=== PATIENT | male | born 1980 | race Two or more races ===

== ENCOUNTER 2022-06-10 11:55 | Outpatient (REF) | payer OTHER, SELFPAY ==
--- NOTE | ~2022-06-10 | XR_ITS ---
EXAMINATION: XR CHEST CLINICAL INFORMATION: Obesity COMPARISON: None TECHNIQUE: 2 views of the chest were obtained. FINDINGS: No significant abnormality is noted involving the heart, lungs, mediastinum, bony thorax or soft tissues. XR/XR chest 2V IMPRESSION: Unremarkable chest examination.
[2022-06-10 12:08] LABS: MANUAL DIFF FLAG NO
--- NOTE | 2022-06-10 12:08 | ECG_ITS ---
Test Reason : e66.9 Blood Pressure : / mmHG Vent. Rate : 072 BPM Atrial Rate : 072 BPM P-R Int : 150 ms QRS Dur : 094 ms QT Int : 366 ms P-R-T Axes : 045 -10 029 degrees QTc Int : 400 ms Normal sinus rhythm with sinus arrhythmia Normal ECG No previous ECGs available Referred By: Fede Rehman Electronically Signed By:ISABEL GRACIA
[2022-06-10 12:36] LABS: Basophils Absolute Auto 0.1 X10*3/uL (0.0-0.2); Basophils Percent Auto 0.7 % (0-2); Eosinophils Absolute Auto 0.2 X10*3/uL (0.0-0.4); Eosinophils Percent Auto 2.1 % (0-4); Hematocrit 48.4 % (42.0-52.0); Hemoglobin 15.7 g/dl (14.0-18.0); Imm Gran Abs Auto 0.04 X10*3/uL (0.00-0.03); Imm Gran Pct Auto 0.5 % (0.0-0.4); Lymphocytes Absolute Auto 3.1 X10*3/uL (1.2-4.9); Lymphocytes Percent Auto 37.5 % (20-40); Mean Corpuscular HGB Conc 32.4 g/dl (31.0-36.0); Mean Corpuscular Hemoglobin 27.6 pg (27.0-33.0); Mean Corpuscular Volume 85.2 fL (80.0-98.0); Mean Platelet Volume 9.8 fL (9.4-12.4); Monocytes Absolute Auto 0.5 X10*3/uL (0.1-1.2); Monocytes Percent Auto 6.3 % (2-11); Neutrophils Absolute Auto 4.3 x10*3/uL (2.0-8.3); Neutrophils Percent Auto 52.9 % (45-73); Platelet Count 291 X10*3/uL (160-400); Red Blood Count 5.68 X10*6/uL (4.60-5.80); Red Cell Distribution Width 13.3 % (11.0-16.0); White Blood Count 8.2 X10*3/uL (4.8-10.8)
[2022-06-10 12:50] LABS: Alanine Aminotransferase 41 U/L (0-40); Albumin Level 4.6 g/dL (3.5-5.0); Alkaline Phosphatase 82 U/L (39-117); Anion Gap 15 (12-20); Aspartate Amino Transferase 20 U/L (5-37); Bilirubin Total 0.5 mg/dL (0.0-1.0); Blood Urea Nitrogen 11 mg/dL (9-16); C Reactive Protein 0.06 mg/dL (< or = 0.50); Carbon Dioxide 25 mmol/L (22-29); Chloride 105 mmol/L (96-108); Cholesterol 198 mg/dL; Estimated Glomerular Filt Rate > 60; Glucose Random 100 mg/dL (60-115); HDL Cholesterol 46 mg/dL; Iron 129 mcg/dL (45-160); LDL Cholesterol Calculated 98 mg/dl; Percent Iron Saturation 42 % (15-50); Potassium 4.9 mmol/L (3.3-5.1); Sodium 140 mmol/L (135-145); Total Iron Binding Capacity 310 mcg/dL (228-428); Total Protein 7.3 g/dL (6.5-8.0); Triglycerides 272 mg/dL; Unsaturated Iron Binding 181 ug/dL
[2022-06-10 12:53] LABS: Estimated Average Glucose 108 mg/dL; Hemoglobin A1c % 5.4 %
[2022-06-10 12:58] LABS: Calcium 10.8 mg/dL (8.4-10.2)
[2022-06-10 13:08] LABS: Ferritin 225 ng/mL (20-250); Insulin 21 uU/mL (2-29); TSH reflex Free T4 0.65 uIU/mL (0.32-4.0); Vitamin D 25-OH Total 22.4 ng/mL (>30)
[2022-06-10 13:53] LABS: Folate 8.1 ng/mL (> or = 4.0); Vitamin B12 434 pg/mL (200-900)
[2022-06-11 12:47] LABS: Calcium (PTHI) 10.5 mg/dL (8.6-10.3); PTHI 35 pg/mL (16-77)
[2022-06-13 01:27] LABS: Zinc 85 mcg/dL (60-130)
[2022-06-13 18:37] LABS: Vitamin A 66 mcg/dL (38-98)
[2022-06-15 12:42] LABS: Vitamin B1 16 nmol/L (8-30)
== END 2022-06-10 11:56 | disposition home or self-care (01) ==
LOC: HO.XRAY 11:55
PROVIDERS: Visit Provider Surgery
DX: E66.9 Obesity, unspecified (principal); I10 Essential (primary) hypertension; G47.30 Sleep apnea, unspecified
CPT/HCPCS: 36415; 71046; 80053; 80061; 82306; 82607; 82728; 82746; 83036; 83525; 83540; 83970; 84425; 84443; 84590; 84630; 85025; 86140; 93005

== ENCOUNTER 2022-07-02 08:23 | Outpatient (REF) | payer OTHER, SELFPAY ==
--- NOTE | ~2022-07-02 | US_ITS ---
EXAMINATION: US COMPLETE ABDOMEN WITH LIVER ELASTOGRAPHY CLINICAL INFORMATION: Obesity COMPARISON: None. TECHNIQUE: Real-time imaging of the abdominal viscera. Noninvasive ultrasound liver fibrosis assessment is performed using [employer] point quantification shear wave elastography (2D-SWE) with a C5-2 MHz transducer. Multiple elastography samples are obtained. FINDINGS: PANCREAS: Normal. ABDOMINAL AORTA: The proximal and distal aortic segments are normal in caliber. The mid abdominal aorta is not well visualized. INFERIOR VENA CAVA: Visualized portions are normal. LIVER: The liver demonstrates normal size, and contour. Liver echotexture is increased probably representing fatty infiltration. There are hypoechoic areas adjacent to the gallbladder, characteristic location of focal fatty sparing.. No focal lesion or intrahepatic biliary duct dilatation. The right lobe measures 17 cm in length. The left lobe measures 9 cm in length. Portal flow is normal/hepatopedal Shear wave liver elastography median stiffness is 1.7 m/s (reference: normal median stiffness is 1.3 m/s or less). IQR/median stiffness to assess sampling precision is 0.4 (reference: good quality data set is IQR/median stiffness of 0.15 or less). GALLBLADDER: Normal. The gallbladder is physiologically distended without evidence of stones, sludge, polyps, wall thickening or pericholecystic fluid. COMMON BILE DUCT: Normal in caliber measuring 0.3 cm in diameter. RIGHT KIDNEY: There are 2 cysts measuring 1.7 x 1.8 x 1.6 cm and 1.8 x 1.4 x 1.9 cm in the lower pole. No hydronephrosis. No renal calculi. The kidney measures 12 cm in maximum dimension. LEFT KIDNEY: Normal. No hydronephrosis. No renal calculi or focal parenchymal lesions. The kidney measures 11 cm in maximum dimension. SPLEEN: Normal. The spleen measures 10.6 cm in maximum dimension. FREE FLUID: None. US/US abdomen comp w elastography IMPRESSION: 1. Impression : Echogenic liver probably representing fatty infiltration. Right renal cysts. Visualization. 2. Liver elastography: Limited due to sampling error. REFERENCE: Society of Radiologists in Ultrasound Liver Stiffness Thresholds (2020): LIVER STIFFNESS THRESHOLDS: *Liver Stiffness equal or less than 1.3 m/s: High probability of being normal. *Liver Stiffness less than 1.7 m/s: In the absence of other known clinical signs, rules out compensated advanced chronic liver disease. *Liver Stiffness 1.7-2.1 m/s: Suggestive of compensated advanced chronic liver disease but need further test for confirmation. *Liver Stiffness over 2.1 m/s: Rules in compensated advanced chronic liver disease. *Liver Stiffness over 2.4 m/s: Suggestive of clinically significant portal hypertension. QUALITY OF DATA SET: *IQR/Median value equal or less than 0.15 implies a quality data set. *IQR/Median value over 0.15 implies a poor quality data set. SIGNIFICANT CHANGE FROM PRIOR EXAM: Significant change if liver stiffness measurement is 10% or greater from prior exam. OTHER CONSIDERATIONS: The stage of liver fibrosis may be overestimated in the setting of acute hepatitis, liver inflammation, elevated liver function tests, hepatic vascular congestion, obstructive cholestasis, non-fasting state, and infiltrative diseases such as amyloidosis and lymphoma. In some patients with NAFLD, the liver stiffness thresholds for compensated advanced chronic liver disease may be lower. In causes other than viral hepatitis and NAFLD, liver stiffness thresholds are not well established.
--- NOTE | ~2022-07-02 | FL_ITS ---
EXAMINATION: XR FLUOROSCOPY UPPER GI WITH AIR CLINICAL INFORMATION: Obesity. COMPARISON: None. TECHNIQUE: Routine upper GI air-contrast study was performed in upright and lying position. FINDINGS: Following oral administration of thick barium and effervescent granules, there is normal propagation of bolus from the oral cavity through the pharynx and esophagus and into the stomach without any evidence of obstruction, narrowing or stricture. On placing patient supine and prone lying, the course, caliber and peristalsis of the stomach, duodenal bulb and the sweep are normal. The mucosal pattern of the stomach or duodenum is normal. No gastroesophageal reflux or hiatal hernia seen. FLUOROSCOPY TIME: 2.0 minutes. DOSE AREA PRODUCT: 38.566 uGy-m2 (microgray-meter squared). FL/FL upper GI w air IMPRESSION: Unremarkable upper GI air-contrast study.
== END 2022-07-02 08:24 | disposition home or self-care (01) ==
LOC: HO.US 08:23
PROVIDERS: Visit Provider Surgery
DX: Z01.818 Encounter for other preprocedural examination (principal); E66.9 Obesity, unspecified; I10 Essential (primary) hypertension; G47.30 Sleep apnea, unspecified
CPT/HCPCS: 74246; 76705; 76981

== ENCOUNTER → 2022-07-08 08:56 | Outpatient (BNVA) | payer OTHER, SELFPAY | PROVIDERS: PCP Nurse Practitioner Family; Visit Provider Dietitian, Registered | DX: E66.9 Obesity, unspecified (principal) | CPT/HCPCS: 97802; 99211 ==

== ENCOUNTER 2022-07-08 15:38 | Outpatient (REF) | payer OTHER, SELFPAY ==
[2022-07-09 14:04] LABS: H Pylori Breath Test Negative (Negative)
== END 2022-07-08 15:39 | disposition home or self-care (01) ==
LOC: HO.LNP 15:38
PROVIDERS: Visit Provider Surgery
DX: E66.9 Obesity, unspecified (principal); G47.30 Sleep apnea, unspecified; I10 Essential (primary) hypertension; Z11.0 Encounter for screening for intestinal infectious diseases
CPT/HCPCS: 83013

== ENCOUNTER → 2022-07-29 09:39 | Outpatient (BNVA) | payer OTHER, SELFPAY | PROVIDERS: PCP Nurse Practitioner Family; Visit Provider Dietitian, Registered | DX: E66.9 Obesity, unspecified (principal); Z68.33 Body mass index [BMI] 33.0-33.9, adult | CPT/HCPCS: 97803 ==

== ENCOUNTER → 2022-07-30 09:00 | Outpatient (BNVA) | payer OTHER, SELFPAY | PROVIDERS: PCP Nurse Practitioner Family; Visit Provider Counselor Mental Health | DX: F31.32 Bipolar disorder, current episode depressed, moderate (principal); E66.9 Obesity, unspecified | CPT/HCPCS: 90791 ==

== ENCOUNTER → 2022-08-05 10:13 | Outpatient (BNVA) | payer OTHER, SELFPAY | PROVIDERS: PCP Nurse Practitioner Family; Visit Provider Counselor Mental Health | DX: F31.32 Bipolar disorder, current episode depressed, moderate (principal); F43.10 Post-traumatic stress disorder, unspecified; E66.9 Obesity, unspecified | CPT/HCPCS: 90834 ==

== ENCOUNTER → 2022-08-26 11:06 | Outpatient (BNVA) | payer OTHER, SELFPAY | PROVIDERS: Visit Provider Counselor Mental Health | DX: F31.32 Bipolar disorder, current episode depressed, moderate (principal); F43.10 Post-traumatic stress disorder, unspecified; E66.9 Obesity, unspecified | CPT/HCPCS: 90834 ==

== ENCOUNTER → 2022-09-18 08:04 | Outpatient (BNVA) | payer OTHER, SELFPAY | PROVIDERS: Visit Provider Surgery | DX: Z13.89 Encounter for screening for other disorder (principal) ==

== ENCOUNTER 2022-10-03 06:06 | Inpatient (IN) | payer OTHER, SELFPAY ==
[2022-09-24 08:31] LABS: MANUAL DIFF FLAG NO
[2022-09-24 08:53] LABS: Basophils Percent Auto 0.6 % (0-2); Eosinophils Absolute Auto 0.2 X10*3/uL (0.0-0.4); Eosinophils Percent Auto 2.9 % (0-4); Hemoglobin 15.5 g/dl (14.0-18.0); Imm Gran Abs Auto 0.02 X10*3/uL (0.00-0.03); Imm Gran Pct Auto 0.3 % (0.0-0.4); Lymphocytes Absolute Auto 2.8 X10*3/uL (1.2-4.9); Lymphocytes Percent Auto 42.7 % (20-40); Mean Corpuscular Hemoglobin 28.7 pg (27.0-33.0); Mean Platelet Volume 9.6 fL (9.4-12.4); Monocytes Absolute Auto 0.4 X10*3/uL (0.1-1.2); Monocytes Percent Auto 6.1 % (2-11); Neutrophils Absolute Auto 3.1 x10*3/uL (2.0-8.3); Neutrophils Percent Auto 47.4 % (45-73); Platelet Count 289 X10*3/uL (160-400); Red Cell Distribution Width 14.3 % (11.0-16.0); White Blood Count 6.5 X10*3/uL (4.8-10.8)
[2022-09-24 09:05] LABS: Estimated Average Glucose 100 mg/dL; Hemoglobin A1c % 5.1 %; Partial Thromboplastin Time 35.6 SEC (26.0-36.4)
[2022-09-24 09:36] LABS: Alanine Aminotransferase 22 U/L (0-40); Albumin Level 4.6 g/dL (3.5-5.0); Alkaline Phosphatase 74 U/L (39-117); Anion Gap 11 (12-20); Aspartate Amino Transferase 14 U/L (5-37); Bilirubin Total 1.1 mg/dL (0.0-1.0); Blood Urea Nitrogen 9 mg/dL (9-16); C Reactive Protein < 0.04 mg/dL (< or = 0.50); Carbon Dioxide 24 mmol/L (22-29); Chloride 109 mmol/L (96-108); Cholesterol 187 mg/dL; Estimated Glomerular Filt Rate > 60; Glucose Random 91 mg/dL (60-115); HDL Cholesterol 48 mg/dL; LDL Cholesterol Calculated 86 mg/dl; Potassium 4.2 mmol/L (3.3-5.1); Sodium 140 mmol/L (135-145); Total Protein 6.9 g/dL (6.5-8.0); Triglycerides 265 mg/dL
[2022-09-24 09:43] LABS: Insulin 6 uU/mL (2-29)
[2022-09-27 10:05] VITALS: BMI 30.2
--- NOTE | 2022-09-28 00:38 | MHC.SHP ---
Pre-Procedural Eval Section A Date of Service: 09/28/22 The patient is an INPATIENT: No The History & Physical has been completed within 30 days and I have reviewed it.: Yes Section B Chief Complaint: Obesity, unspecified Relevant Family History (Specify if Yes): No Relevant Social History: None Present Medications: None Medical History: No relevant PMH History of Previous Operations: No relevant previous surgery Allergies: Allergies Allergy/AdvReac Type Severity Reaction Status Date / Time No Known Drug Allergies Allergy Unknown Unknown Verified 09/18/22 09:04 Review of Systems Sugical H&P ROS: Negative: Constitution, Cardiovascular, Respiratory, Neurological, Psychiatric, Hem-Onc, Allergic/Immunologic, Gastrointestinal, Genitourinary, Musculoskeletal, Integumentary, Endocrine and Eyes/Ears/Nose/Throat Exam Surgical H&P Exam: Normal: HEENT, Normal: Heart, Normal: Lungs, Normal: Extremities, Normal: Abdomen, Normal: Skin and Normal: Neurological Plan Diagnosis/Plan: Unchanged I have reviewed the history and physical and performed a pertinent physical examination on my patient. No changes have occurred unless specified. Time Spent With Patient Time: Total time managing care of this patient today ____ minutes.
--- NOTE | 2022-10-02 10:14 | HO.ANESPROP2 ---
Documented by User: Radha Woodson NP 10/02/22 10:19 HPI - Anesthesia Eval Consult details Narrative: 42yo M for Gastrectomy Sleeve,possible diaphragmatic hernia,possible ventral hernia,possible open PMFSH Active Problems Active Problems: All Active Problems (Updated 09/27/22 @ 10:07 by Kary Camilo RN) Hypertension (Acute) Vitamin D deficiency (Acute) Vitamin B12 deficiency (Acute) BMI 34.0-34.9,adult (Acute) Bipolar 1 disorder, depressed, moderate (Acute) Complex posttraumatic stress disorder (Acute) BMI 31.0-31.9,adult (Acute) BMI 30.0-30.9,adult (Acute) Depression (Acute) Back pain (Acute) Prediabetes (Acute) Hypertension (Acute) HIV positive (Acute) GERD (gastroesophageal reflux disease) (Acute) Hyperlipidemia (Acute) Sleep apnea (Acute) BMI 37.0-37.9, adult (Acute) Obesity (Acute) Past Medical History Medical History Back pain Bipolar disorder BMI 37.0-37.9, adult Depression GERD (gastroesophageal reflux disease) HIV positive Hyperlipidemia Hypertension Murmur, heart Obesity Prediabetes Sleep apnea Surgical History Surgical History H/O nasal septoplasty H/O rectal polypectomy History of laparoscopic appendectomy (~2020) Hx of tonsillectomy Social History Social History Are you a primary home care music therapist to a significant other at home: No Do you presently have visiting nurse or other home services: No Alcohol intake: never Patient Tobacco Use Status: Never used Tobacco Use of substances other than those prescribed or required for medical reasons: No Have you been hit, kicked, punched, or otherwise hurt by someone within the past year? If so, by whom?: No Are you DNR?: No Advance Directives: No ( is primary contact-does not have official HCP form) Advance Directives Information Provided: Yes (brochure mailed) Advance Directives on File: No Recently lost weight without trying: No Eating poorly because of decreased appetite: No Nutrition Risks: No Nutritional Risk Poor oral hygiene: No (one crown-upper left molar) Meds Allergies Allergy/AdvReac Type Severity Reaction Status Date / Time No Known Drug Allergies Allergy Unknown Unknown Verified 09/18/22 09:04 Home Medications Medication Instructions Recorded Confirmed Last Taken Type atorvastatin 20 mg tablet 20 mg PO DAILY 06/03/22 10/03/22 Unknown History emtricitabine 200 mg-rilpivirine 1 tab PO DAILY 06/03/22 10/03/22 Unknown History 25 mg-tenofovir alafenam 25 mg tablet (Odefsey) quetiapine 25 mg tablet (Seroquel) 25 mg PO DAILY 06/03/22 10/03/22 Unknown History cholecalciferol (vitamin D3) 125 125 mcg PO DAILY 09/27/22 10/03/22 Unknown History mcg (5,000 unit) capsule hydrochlorothiazide 12.5 mg tablet 12.5 mg PO DAILY 09/27/22 10/03/22 Unknown History mecobalamin (vitamin B12) 1,000 1,000 mcg sublingual DAILY 09/27/22 10/03/22 Unknown History mcg disintegrating tablet,sublingual Exam Exam Date and Time: October 02, 2022 1014 Height,Weight and Vital Signs: Height 5 ft 9 in Weight 92.986 kg Pertinent Lab Results Pertinent Lab Results: Laboratory Tests 09/24/22 09/24/22 09/24/22 08:22 08:29 08:29 WBC 6.5 RBC 5.40 Hgb 15.5 Hct 47.0 MCV 87.0 MCH 28.7 MCHC 33.0 RDW 14.3 Plt Count 289 MPV 9.6 Immature Gran % (Auto) 0.3 Neut % (Auto) 47.4 Lymph % (Auto) 42.7 H Wake % (Auto) 6.1 Eos % (Auto) 2.9 Baso % (Auto) 0.6 Lymph # (Auto) 2.8 Wake # (Auto) 0.4 Eos # (Auto) 0.2 Baso # (Auto) 0.0 Abs Immat Gran (auto) 0.02 Absolute Neuts (auto) 3.1 Absolute Nucleated RBC 0.000 Nucleated RBC % (auto) 0.0 PT 11.0 INR 1.0 APTT 35.6 Sodium Potassium Chloride Carbon Dioxide Anion Gap BUN Creatinine Estim Creat Clear Calc Estimated GFR Random Glucose Estimat Average Glucose Hemoglobin A1c % Insulin Level Calcium Total Bilirubin AST ALT Alkaline Phosphatase C-Reactive Protein Total Protein Albumin Triglycerides Cholesterol LDL Cholesterol, Calc HDL Cholesterol TSH Blood Type O Positive Antibody Screen NEGATIVE 09/24/22 09/24/22 08:29 08:29 WBC RBC Hgb Hct MCV MCH MCHC RDW Plt Count MPV Immature Gran % (Auto) Neut % (Auto) Lymph % (Auto) Wake % (Auto) Eos % (Auto) Baso % (Auto) Lymph # (Auto) Wake # (Auto) Eos # (Auto) Baso # (Auto) Abs Immat Gran (auto) Absolute Neuts (auto) Absolute Nucleated RBC Nucleated RBC % (auto) PT INR APTT Sodium 140 Potassium 4.2 Chloride 109 H Carbon Dioxide 24 Anion Gap 11 L BUN 9 Creatinine 0.93 Estim Creat Clear Calc TNP Estimated GFR > 60 Random Glucose 91 Estimat Average Glucose 100 Hemoglobin A1c % 5.1 Insulin Level 6 Calcium 10.0 D Total Bilirubin 1.1 H AST 14 ALT 22 Alkaline Phosphatase 74 C-Reactive Protein < 0.04 Total Protein 6.9 Albumin 4.6 Triglycerides 265 Cholesterol 187 LDL Cholesterol, Calc 86 HDL Cholesterol 48 TSH 1.00 Blood Type Antibody Screen Narrative Narrative: EKG 05/2022 Vent. Rate : 072 BPM ? ? Atrial Rate : 072 BPM ?? P-R Int : 150 ms? QRS Dur : 094 ms ? ? QT Int : 366 ms ? ? ? P-R-T Axes : 045 -10 029 degrees ?? QTc Int : 400 ms ? Normal sinus rhythm with sinus arrhythmia Normal ECG No previous ECGs available ? Assessment and Plan Assessment Anesthesia Assessment: Chart Reviewed Documented by User: Maral Krishnamurthy MD 10/03/22 08:14 [facility] [place] Past Medical History Medical History Back pain Bipolar disorder BMI 37.0-37.9, adult Depression GERD (gastroesophageal reflux disease) HIV positive Hyperlipidemia Hypertension Murmur, heart Obesity Prediabetes Sleep apnea Surgical History Surgical History H/O nasal septoplasty H/O rectal polypectomy History of laparoscopic appendectomy (~2020) Hx of tonsillectomy History of Problems with Anesthesia: No Social History Social History Are you a primary home care music therapist to a significant other at home: No Do you presently have visiting nurse or other home services: No Alcohol intake: never Patient Tobacco Use Status: Never used Tobacco Use of substances other than those prescribed or required for medical reasons: No Have you been hit, kicked, punched, or otherwise hurt by someone within the past year? If so, by whom?: No Are you DNR?: No Advance Directives: No ( is primary contact-does not have official HCP form) Advance Directives Information Provided: Yes (brochure mailed) Advance Directives on File: No Recently lost weight without trying: No Eating poorly because of decreased appetite: No Nutrition Risks: No Nutritional Risk Poor oral hygiene: No (one crown-upper left molar) Meds Allergies Allergy/AdvReac Type Severity Reaction Status Date / Time No Known Drug Allergies Allergy Unknown Unknown Verified 09/18/22 09:04 Home Medications Medication Instructions Recorded Confirmed Last Taken Type atorvastatin 20 mg tablet 20 mg PO DAILY 06/03/22 10/03/22 Unknown History emtricitabine 200 mg-rilpivirine 1 tab PO DAILY 06/03/22 10/03/22 Unknown History 25 mg-tenofovir alafenam 25 mg tablet (Odefsey) quetiapine 25 mg tablet (Seroquel) 25 mg PO DAILY 06/03/22 10/03/22 Unknown History cholecalciferol (vitamin D3) 125 125 mcg PO DAILY 09/27/22 10/03/22 Unknown History mcg (5,000 unit) capsule hydrochlorothiazide 12.5 mg tablet 12.5 mg PO DAILY 09/27/22 10/03/22 Unknown History mecobalamin (vitamin B12) 1,000 1,000 mcg sublingual DAILY 09/27/22 10/03/22 Unknown History mcg disintegrating tablet,sublingual Exam Airway Mallampati Class: II (Full bernardo) TM Dist: >3cm Neck ROM: Full Loose/Missing/Broken Teeth: No Heart: RRR Lungs: CTA Assessment and Plan Assessment Anesthesia Assessment: Anesthesia Plan Discussed Final Anesthetic Review History of Problems with Anesthesia: No NPO: Yes ASA Class: II Final Preanesthetic Review: Meds/Allgs Chart Reviewed, Consent Obtained/Reviewed and Anes Risks/Benef Reviewed Patient Risk: Low Procedure Risk: Intermediate Anesthetic Plan Anesthetic Plan: GA Disposition: Standard PACU
[2022-10-02 13:08] LABS: COVID-19 Test Negative (Negative); IDNOW Serial# 55D5AD1C
[2022-10-03] VITALS (11 sets, daily range): BP systolic 107–142; BP diastolic 60–91; PULSE 60–100; RESP 14–18; TEMP 36.1–37.2; O2SAT 94–100
[2022-10-03] MEDS: Lactated Ringers 1,000 ML 100 ML IVCONT (06:31)
[2022-10-03] MEDS: Lactated Ringers 1,000 ML 999 ML IV (06:31)
--- NOTE | 2022-10-03 06:58 | HE.PHANOTE ---
Addendum entered by Ani Yan [facility] 10/03/22 07:00: Odefsey was verified, label generated. 2 tablets in bottle when given to pharmacy Original Note: RN from [facility] dropped off pt own meds, Odefsey is going to be used PT OWN per Dr. Olmos, Seroquel was also in bag and is going to be kept in pharmacy C2 safe. RN left without triplicate form.
--- NOTE | 2022-10-03 07:31 | PHA.MEDREC ---
Pharmacy Consult ? Medication Reconciliation Pharmacy has completed the medication reconciliation. Reviewed med rec done by nursing
--- NOTE | 2022-10-03 07:51 | PM.OP ---
Brief Operative Note Date of Service: 10/03/22 Pre-op diagnosis: Obesity with comorbidities (see below) Post-op diagnosis: same (& diaphragmatic hernia) Procedure: INITIAL PATIENT BMI ON PRESENTATION AT OUR OFFICE: 37.3 kg/m2 LAST BMI BEFORE SURGERY: 29.9 kg/m2 COMORBIDITIES: sleep apnea on CPAP, HIV positive, depression, anxiety, prediabetes, liver fibrosis, liver steatosis, GERD, back pain ?The patient presented to the Weight Management Program with significant obesity that was negatively impacting the patient's comorbidities as listed above.? The program is a phased program with a special focus on preoperative medical weight management to promote substantial weight loss and prepare the patients for the second phase of the program: bariatric surgery. The patient participated in an intensive weekly lifestyle ?intervention and exercise program during which the patient ?has lost between the initial office visit and the last preoperative visit 50.4lbs, or 20% of initial actual body weight. It was deemed appropriate for the patient to now have bariatric surgery. In light of the current Covid-19 pandemic and the well documented strong association of obesity and increased risk of worse outcomes if infected with Covid-19 (REFERENCES:https://pubmed.ncbi.nlm.nih.gov/02533667/,?https://pubmed.ncbi.nlm.nih.gov/00822005/), any delay in undergoing bariatric surgery may lead to the patient's worsening health condition and increased?risk of more severe Covid-19 disease if infected. In addition a recent?study from [facility] published in [facility] on 09/17/2021 ([email or web address]) found that, among patients with obesity, substantial weight loss achieved with surgery was associated with improved outcomes of COVID-19 infection. The findings suggest that obesity can be a modifiable risk factor for the severity of COVID-19 infection. In addition, the patient met the BMI-criteria for bariatric surgery based on the BMI on initial presentation. The patient should not be penalized for achieving such weight loss because ?it is not sustainable long-term without surgical intervention and it was achieved in preparation for bariatric surgery ?under my direction and based on my published research ([email or web address] and?[email or web address].soard.org/article/[email or web address]-X/pdf) ?that a 10% preoperative weight loss improves long-term weight loss after surgery and reduces perioperative complications.? Insurance carriers such as [facility] have endorsed my recommendations ?and have included in their policies criteria to include a 10% preoperative weight loss requirement. PROCEDURE: Esophago-gastroscopy, laparoscopic repair of incarcerated diaphragmatic hernia, laparoscopic lysis of adhesions, laparoscopic sleeve gastrectomy and laparoscopic gastropexy INDICATIONS: This is a 42 year-old male who was electively scheduled for laparoscopic, possibly open sleeve gastrectomy. The risks and complications of the procedure were discussed with the patient in advance, particularly the possibility of ; pulmonary embolism; staple line leak; bleeding; GERD; cardiac, pulmonary, or renal complications; as well as long-term problems such as insufficient weight loss, vitamin deficiency, strictures, or ulcers. The patient understood all the risks, and was in agreement to proceed with surgery. DESCRIPTION OF PROCEDURE: After informed consent was obtained from the patient, the patient was given preoperative antibiotics, and was transferred to the operating room. After successful induction of general anesthesia, pneumatic compression devices were placed on both lower extremities. An upper endoscopy was performed next. The oropharynx and esophagus appeared to be within normal limits. There was a diaphragmatic hernia present of moderate size that was not reported at the preoperative upper GI. The stomach was entered. Then after all fluid and air were suctioned and the stomach was fully decompressed, the scope was withdrawn and secured in the mid esophagus. The patient was then prepped and draped in the usual sterile manner, and abdominal access was established at the right upper quadrant with the Maulik technique. A 12 mm blunt port was inserted, and the abdomen was insufflated with CO2 to a pressure of 15 mmHg. Under direct visualization, additional ports were placed, specifically two 5 mm Versi-step ports to the left upper quadrant, and a 5 mm Versi-Step port to the right upper quadrant. 1% lidocaine plain was used to infiltrate all port sites as well as all fascia defects. Following that, the patient was placed in a steep reverse Trendelenburg position. An additional 5 mm port was placed to the right flank for the Mediflex retractor that was used to retract the left lobe of the liver. The gastro-esophageal fat pad was opened with the ultrasonic device (Thunderbeat, Olympus) and the anterior esophagus and hiatus were exposed. The angle of His was opened with the ultrasonic device the fundus of the stomach from any diaphragmatic and splenic attachments. I then opened the gastrocolic ligament between the transverse colon and the greater curvature of the stomach with the ultrasonic device to enter the lesser sac and facilitate the ligation of the short gastric vessels. I started at a mid-point along the greater curvature and using the Thunderbeat, all short gastric vessels were divided all the way to the angle of His until the left ilia was completely dissected at its entirety. I then divided the gastro-colic ligament distally to a distance of about 3-4 cm proximal to the pylorus. There were extensive congenital adhesions between the pancreas and posterior gastric wall. Those were lysed completely with the ultrasonic device. Adhesiolysis took approximately 45 min to complete. There was an obvious significant-sized hiatal hernia. I continued dissecting along the hiatus toward the left ilia and the angle of His. I fully mobilized the fat pad that was incarcerated in the hernia. I then continued by dissecting even further into the posterior retro-esophageal space all the way to the angle of His. I continued to mobilize the esophagus into the mediastinum circumferentially. Both vagal nerves were seen and preserved. At that point, I was able to have at least 3 to 5 cm of esophagus into the abdomen.? After I completely mobilized the esophagus from both the left and right ilia and I had a good mobilization of the esophagus circumferentially, I closed the hernia defect with four interrupted #0 Surgidac sutures using the Endo Stitch device,three of which was placed posterior and one of which anterior to the esophagus. ? The stomach was then divided transversely with one Endo ROLAND-45 purple, 3 ROLAND-45 orange loads and 3 ROLAND-60 articulating orange loads using the AEON stapler and loads. Every effort was made that the gastric sleeve had a tubular shape and an even caliber throughout. Once the sleeve resection was completed, the staple line of the gastric sleeve was reinforced with Hemoclips. The resected stomach was retrieved without difficulty from the Maulik port. A gastropexy was then performed in order to prevent postoperative GERD and partial gastric volvulus. Several interrupted 2.0 Surgidac sutures were placed between the sleeve's staple line and the previously divided greater omentum and gastro-colic ligament using the Endo-Stitch device. ?An upper endoscopy was performed. There was no narrowing at the GE junction. The scope was easily advanced all the way to the pylorus which was clearly visualized. There was no narrowing anywhere and the sleeve's caliber was even throughout. The sleeve's staple line was inspected and there was no evidence of ischemia, bleeding or dehiscence. At that point the gastroscope was withdrawn from the patient?s mouth while we were decompressing the bowel and the stomach from any remaining air. I looked into the lesser sac to see how the sleeve was situating and it was situating well. There was no bleeding from the staple line, spleen, or short gastric vessels. The Mediflex retractor was removed, and the undersurface of the liver was inspected and there was no bleeding. The patient was placed in supine position. I closed the fascial defect of the 12 mm port site with a figure of eight #1 Polysorb suture. Then 30cc of Ropivacaine plain with 10 mg of Dexamethasone were used to infiltrate the fascial closure as well as all skin incisions. A total of 7ml Zynrelef was applied in the Maulik wound. At this point, the abdomen was deflated, all ports were removed under direct vision, and no bleeding was noted from any of the port sites. The skin incisions were irrigated with saline and were closed with 4-0 absorbable monofilament sutures. Steri-Strips and OpSites were used to cover all incisions. The patient was extubated and was transferred in stable condition to the recovery room for further care. I was present and performed all sullivan parts of the procedure. Ms. Gee was the assistant store manager operations. There were no residents to assist with this case. Pablo Rehman MD, PhD, FACS Surgeon: Fede Rehman MD Anesthesia: GETA, local and other (TAP block & 7ml Zynrelef) Was an Severity Of Illness Coordinator used for this Procedure?: No Severity Of Illness Coordinator: Vivek Olmos Estimated blood loss (mL): 50 IV fluids (mL): 3,000 Urine output (mL): 0 (No Nesbitt to record output) Pathology: other (Stomach) Condition: stable Disposition: PACU
--- NOTE | 2022-10-03 07:55 | PM.PNGS ---
Subjective Subjective Date of Service: 10/04/22 Interval history: Patient has mild incisional pain, but was able to ambulate and use the incentive spirometer. He is tolerating phase 1 bariatric diet Physical Exam Vital Signs: Vital Signs: Last Vital Signs Temp 97.9 F 10/03/22 06:51 Pulse 69 10/03/22 06:51 Resp 18 10/03/22 06:51 BP 129/72 10/03/22 06:51 Pulse Ox 97 10/03/22 06:51 O2 Del Method 10/03/22 06:51 BMI result Body Mass Index 30.2 GI: Inspection: Yes normal to inspection, Yes incision (clean, dry and intact) and Yes obesity Palpation (GI): Soft to palpation Extrem: Right lower extremity: normal to inspection (no calf tenderness) Left lower extremity: normal to inspection (no calf tenderness) Objective Data Active Medications Lactated Ringer's (Lr) 1,000 mls @ 100 mls/hr IVCONT .Q10H BEAR Last Admin: 10/03/22 06:31 Dose: 100 mls/hr Documented By: FITO Lactated Ringer's (Lr) 1,000 mls @ 999 mls/hr IV .Q1H1M BEAR Stop: 10/03/22 08:15 Last Admin: 10/03/22 06:31 Dose: 999 mls/hr Documented By: FITO Pt Own (Paulette( [id number]) Tablet 1 Tab) 1 tab PO DAILY BEAR Labs 09/24/22 08:29 09/24/22 08:29 Labs: Laboratory Results - last 24 hr 10/02/22 12:36 COVID-19 (JIM) Negative COVID-19 Clin Com See Note Procedures Date of Service Date of Service: 10/04/22 Progress Note: A&P Assessment and plan (1) Obesity: Status: Acute Assessment and Plan: s/p laparoscopic sleeve gastrectomy, lysis of adhesions, repair of diaphragmatic hernia, and gastropexy Doing well Check am labs. If OK, will discharge home? (2) BMI 30.0-30.9,adult: Status: Acute (3) Hypertension: Status: Acute (4) Prediabetes: Status: Acute (5) GERD (gastroesophageal reflux disease): Status: Acute (6) HIV positive: Status: Acute (7) Hyperlipidemia: Status: Acute (8) Sleep apnea: Status: Acute (9) Back pain: Status: Acute (10) Depression: Status: Acute (11) Steatosis, liver: Status: Acute (12) Liver fibrosis: Status: Acute (13) S/P laparoscopic sleeve gastrectomy: Status: Acute (14) Status post repair of paraesophageal diaphragmatic hernia: Status: Acute (15) Congenital intra-abdominal adhesions: Status: Acute Time Spent With Patient Time: Total time managing care of this patient today ____ minutes. Quality Stroke Does the patient have a stroke diagnosis?: No VTE Prior VTE?: No VTE Risk Level:: Surgical - moderate VTE Device Contraindication: N/A - Device Ordered VTE Drug Contraindication: Treatment Not Indicated
--- NOTE | 2022-10-03 11:22 | P.DS_ITS ---
DS: Providers Provider Date of Service: 10/04/22 Date of admission: 10/03/22 06:06 Primary care physician: Rosamaria Grullon NP DS: Diagnosis Discharge Diagnosis (1) Obesity: Status: Acute (2) BMI 30.0-30.9,adult: Status: Acute (3) Hypertension: Status: Acute (4) Prediabetes: Status: Acute (5) GERD (gastroesophageal reflux disease): Status: Acute (6) HIV positive: Status: Acute (7) Hyperlipidemia: Status: Acute (8) Sleep apnea: Status: Acute (9) Back pain: Status: Acute (10) Depression: Status: Acute (11) Steatosis, liver: Status: Acute (12) Liver fibrosis: Status: Acute DS: Summary Hospital Course Hospital Course: ADMITTING DIAGNOSIS: obesity, HTN, HIV, MARI, Depression, Bipolar ? DISCHARGE DIAGNOSIS: same, s/p laparoscopic sleeve gastrectomy and repair diaphragmatic hernia ? PAST SURGICAL HISTORY: laparoscopic appendectomy, septoplasty, tonsillectomy ? PROCEDURE: upper endoscopy, laparoscopic sleeve gastrectomy and repair of diaphragmatic hernia hernia ? DISCHARGE SUMMARY: ? History of Present Illness: ? The patient is a?42 year-old male with a BMI of?37.2 kg/m2 and associated co- morbidities as described above. The patient had extensive work-up,lost?47.3 lbs preoperatively and was electively scheduled for laparoscopic, possible open sleeve gastrectomy and gastropexy. Risks and complications of the surgery were discussed with the patient in advance, particularly the possibility of , pulmonary embolism, anastomotic leak, bleeding, bowel injury, GERD, cardiac, renal or pulmonary complications. The patient understood all the risks and was in agreement with the surgical plan. ? Hospital Course: ? The patient underwent an uneventful laparoscopic sleeve gastrectomy with gastropexy and repair of diaphragmatic hernia on the day of admission. Postoperatively, the patient was transferred to the surgical floor. The patient received IV Acetaminophen and IV dilaudid for pain control. Patient was started on bariatric phase 1 diet POD #0. On postoperative day one, the patient was feeling well without nausea, vomiting, fevers, or tachycardia. The patient had some mild incisional pain and the abdomen was soft. ? On the morning of postoperative day one, the patient was continued on 1 ounce of water or ice every half hour. During the day, the patient did fairly well, having some incisional pain, but able to ambulate adequately and to tolerate liquids well. ? Since the patient is doing well, we decided that the patient was ready to be discharged. The patient was given instructions to follow-up with me next week and to call my office for any fever over 101, persistent abdominal pain, nausea, vomiting, GERD, symptoms of DVT such as calf tenderness, or leg swelling, or pulmonary embolism such as chest pain or shortness of breath. The patient was also instructed to drink 40-60 ounces of liquids per day using the 1-ounce cups. The patient had been given prescriptions for Tylenol for pain, Zofran prn for nausea, and pantoprazole and carafate previously. The patient was encouraged to ambulate and use the incentive spirometer. The patient was allowed to shower, but no baths, and encouraged to stay active at home. All of these instructions were given to the patient personally. All questions were answered and the patient understood all instructions, the instructions were also given to the patient in print. Time Spent with Patient Time attestation: Total time managing care of this patient today ____ minutes. Discharge coordination time: Less than 30 minutes Quality: Safe Use of Opioids Does Pt have an Active Cancer Diagnosis on the Problem List?: No Quality: Stroke Does the patient have a stroke diagnosis?: No Physical Exam Vital Signs: Vital Signs: Last Vital Signs Temp 97.9 F 10/03/22 06:51 Pulse 69 10/03/22 06:51 Resp 18 10/03/22 06:51 BP 129/72 10/03/22 06:51 Pulse Ox 97 10/03/22 06:51 O2 Del Method 10/03/22 06:51 BMI result Body Mass Index 30.2 DS: Data Data Completed and Pending Pending studies at discharge: Pending at discharge 10/03/22 10:24 Surgical [PTH] Routine Labs on day of discharge: Laboratory Results - last 24 hr 10/02/22 12:36 COVID-19 (JIM) Negative COVID-19 Clin Com See Note Discharge Plan Discharge Anticipated Discharge Date/Time: 10/04/22 10:00 Patient Disposition: Home, Self-Care Discharge Diagnosis: s/p laparoscopic sleeve gastrectomy and repair of diaphragmatic hernia Referrals: Rosamaria Grullon NP [Primary Care Provider] - 1 Week Discharge Medications: Continued fondaparinux 2.5 mg/0.5 mL syringe 2.5 mg subcut Q24H Qty: 5 1RF atorvastatin 20 mg tablet 20 mg PO DAILY quetiapine [Seroquel] 25 mg tablet 25 mg PO DAILY pantoprazole 40 mg tablet,delayed release (DR/EC) 40 mg PO DAILY Qty: 30 2RF sucralfate 100 mg/mL suspension 10 ml PO BID Qty: 400 2RF ondansetron HCl 4 mg tablet 4 mg PO Q12H Qty: 20 0RF Rx Instructions: Every 12 hours for nausea as needed Held hydrochlorothiazide 12.5 mg tablet 12.5 mg PO DAILY Hold Instructions: until discussed with Dr Ori Caldwell 200-25-25 mg tablet 1 tab PO DAILY Hold Instructions: Resume on 10/14/22. Rx Instructions: must administer with a meal/food Discontinued cholecalciferol (vitamin D3) 125 mcg (5,000 unit) capsule 125 mcg PO DAILY mecobalamin (vitamin B12) 1,000 mcg tablet,disintegrating 1,000 mcg sublingual DAILY Rx Instructions: place tablet under tongue and allow to dissolve for at least30 secs before swallowing polyethylene glycol 3350 [Miralax] 17 gram powder in packet 17 g PO DAILY Qty: 14 0RF Rx Instructions: Mix each packet with 8oz of water and do 7 packets on 10/01/22 and another 7 packets on 10/02/22 Discharge Orders: Discharge Order (Routine); Ordered 10/04/22 Ordered By: Fede Rehman Activity on Discharge: No heavy lifting Stand Alone Forms: Patient Portal Discharge page Care Plan Goals: weight loss Health Concerns: obesity Plan of Treatment: No tub baths, sex or returning to work until discussed at first post op appointment. No exercise, alcohol, tobacco or illegal drug use. Continue to use incentive spirometer hourly while awake. Walk in home for 5- 10 minutes every 2 hours during the first week. Follow all instructions in the bariatric handbook and call with any questions.Discharge Instructions 1. Please call your doctor or come back to the emergency room should any new symptoms arise. 2. You will receive a courtesy call from [facility] 24-48 hours after discharge. 3. Activity: abstain from alcohol, practice limited stair climbing, no bending, no driving, no exercise, no illicit substances, no lifting, no sex, no tub bath, no work. 4. Diet: continue as discussed with Dr. Rehman. 5. Dressing Change/Wound Care: Your incision is covered by clear bandages and guaze underneath. If the area is tender, you may apply an ice pack for short intervals (no more than 20 minutes on, followed by at least 20 minutes off). Do not apply heat. Do not use creams, lotions, or topical antibiotics unless instructed to do so by your surgeon. These can cause infection or allergic reaction. 6. Call your doctor if: - Your temperature exceeds 101.5 F - You experience excessive pain or swelling - You have an unexpected reaction to medication - You have excessive bleeding - You experience continued vomiting/nausea - Your incision begins to separate - Your incision shows signs of infection such as increased redness, swelling, excessive pain, heat, or drainage (light blood or clear fluid is normal) 7. General instructions: No lifting greater than 5 lbs for the next 4 weeks[address] driving within 24 hours of taking narcotic pain medications. If you do not move your bowels in the next 2 days, please take milk of magnesia over the counter. Please follow the post op diet and do not advance your diet until you are seen in the office in about 2 weeks. Please walk around your home every hour or two to prevent blood clots from forming in your legs. You do not need to wake from sleeping to walk. Please sleep in a bed or couch to prevent kinking at the hips and knees. Please take your incentive spirometer (your lung radioactive waste disposal dispatcher) home with you and use it for the next few days to prevent pneumonias. You may shower, no hot tubs, baths or swimming pools. Please call the office with any questions or concerns such as increasing abdominal pain, fever, chills, shortness of breath, chest pain, leg pain or swelling, or redness or drainage from your incisions. Please stay on stage 3 diet which includes sugar free clear liquids such as ice pops and jello and broth and crystal light. Avoid all carbonation. Please drink 3 protein shakes with at least 25-30 grams of protein daily or 3 of the Celebrate 4:1 shakes which can be purchased in our office. The Celebrate shakes have all of the bariatric vitamins you need if you consume these shakes. If you are drinking other protein shakes, you will need to purchase the Celebrate mu ltivitamins and calcium that we provide in the office (they will provide all the vitamins you need). Please make sure you are consuming at least 40-60 ounces of water in addition to your 3 protein shakes daily. Do not hesitate to contact the office with any questions at . The patient's medical history has been reviewed and they are considered low risk for post op DVT and therefore DVT prophylaxis is not considered necessary. Travel after surgery was reviewed. The patient has not disclosed any travel plans during the first 30 days after surgery and they have been advised that within the first 30 days after surgery any bus, plane, train or car travel over 2 hours in duration is contraindicated due to the possibility of developing blood clots from immobility. Any travel, needs to include periods of ambulation of 10 minutes in duration every 2 hours.? The patient was instructed to discuss any plans for travel during this period with their bariatric surgeon. Assessment: stable s/p laparoscopic sleeve gastrectomy and repair of diaphragmatic hernia
[2022-10-03 11:43] LABS: Hematocrit 41.2 % (42.0-52.0); Hemoglobin 13.6 g/dl (14.0-18.0)
[2022-10-03] MEDS: Famotidine/PF 20 MG/2 ML VIAL IVPUSH ×2 (11:55→21:12)
[2022-10-03 12:04] LABS: Anion Gap 14 (12-20); Blood Urea Nitrogen 12 mg/dL (9-16); Calcium 8.6 mg/dL (8.4-10.2); Carbon Dioxide 26 mmol/L (22-29); Chloride 100 mmol/L (96-108); Creatinine Clr Calc Pharmacy 109.4; Estimated Glomerular Filt Rate > 60; Glucose Random 73 mg/dL (60-115); Potassium 4.3 mmol/L (3.3-5.1); Sodium 136 mmol/L (135-145)
[2022-10-03] MEDS: Lactated Ringers 1,000 ML 125 ML IVCONT ×2 (12:27→19:42)
[2022-10-03] MEDS: ceFAZolin Sodium/Dextrose,Iso 2 GM/50 ML PIGGYBACK IV (13:19)
--- NOTE | 2022-10-03 13:48 | HE.PHANOTE ---
Sent offshore wind turbine technician down with PT own james to put in pt own bin.
[2022-10-03] MEDS: Acetaminophen 1,000 MG/100 ML PIGGYBACK 16.7 MG IV ×2 (14:09→19:42)
[2022-10-03] MEDS: QUEtiapine Fumarate 25 MG TABLET PO (21:12)
[2022-10-03] MEDS: ondansetron HCL 4 MG/2 ML VIAL IVPUSH (21:12)
[2022-10-04] MEDS: Acetaminophen 1,000 MG/100 ML PIGGYBACK 16.7 MG IV ×2 (00:21→06:12)
[2022-10-04] MEDS: Lactated Ringers 1,000 ML 125 ML IVCONT (03:05)
[2022-10-04 04:00] VITALS: BP 107/63; PULSE 60; RESP 16; TEMP 36.4; O2SAT 98
[2022-10-04] MEDS: ondansetron HCL 4 MG/2 ML VIAL IVPUSH (04:16)
[2022-10-04 06:19] LABS: MANUAL DIFF FLAG NO
[2022-10-04 06:34] LABS: Basophils Percent Auto 0.1 % (0-2); Hematocrit 38.9 % (42.0-52.0); Hemoglobin 12.7 g/dl (14.0-18.0); Imm Gran Abs Auto 0.03 X10*3/uL (0.00-0.03); Imm Gran Pct Auto 0.4 % (0.0-0.4); Lymphocytes Absolute Auto 1.9 X10*3/uL (1.2-4.9); Lymphocytes Percent Auto 22.8 % (20-40); Mean Corpuscular HGB Conc 32.6 g/dl (31.0-36.0); Mean Corpuscular Hemoglobin 28.1 pg (27.0-33.0); Mean Corpuscular Volume 86.1 fL (80.0-98.0); Mean Platelet Volume 10.1 fL (9.4-12.4); Monocytes Absolute Auto 0.8 X10*3/uL (0.1-1.2); Monocytes Percent Auto 10.1 % (2-11); Neutrophils Absolute Auto 5.5 x10*3/uL (2.0-8.3); Neutrophils Percent Auto 66.6 % (45-73); Platelet Count 232 X10*3/uL (160-400); Red Blood Count 4.52 X10*6/uL (4.60-5.80); Red Cell Distribution Width 13.5 % (11.0-16.0); White Blood Count 8.3 X10*3/uL (4.8-10.8)
[2022-10-04 06:51] LABS: Anion Gap 17 (12-20); Blood Urea Nitrogen 8 mg/dL (9-16); Carbon Dioxide 23 mmol/L (22-29); Chloride 102 mmol/L (96-108); Creatinine Clr Calc Pharmacy 112.9; Estimated Glomerular Filt Rate > 60; Glucose Random 76 mg/dL (60-115); Potassium 4.8 mmol/L (3.3-5.1); Sodium 137 mmol/L (135-145)
[2022-10-04 07:34] VITALS: BP 115/76; PULSE 76; RESP 18; TEMP 36.1; O2SAT 100
[2022-10-04 08:15] VITALS: O2SAT 99
--- NOTE | 2022-10-04 08:18 | HO.POSTANES ---
Post Anesthesia Evaluation Post Anesthesia Evaluation Vital Signs: Vital Signs Temp Pulse Resp BP Pulse Ox O2 Del Method 10/04/22 07:34 97.0 F 76 18 115/76 100 Room Air 10/04/22 04:00 97.6 F 60 16 107/63 98 Room Air Anesthesia: General Endotracheal-GETA Mental Status: Awake Pain Control: Satisfactory Nausea/Vomiting: None Hydration: Adequate Anesthesia-Related Issues: No Anes. Related Issues
[2022-10-04] MEDS: 0.9 % Sodium Chloride Flush 3 ML SYRINGE IVFLUSH (08:52)
[2022-10-04] MEDS: Famotidine/PF 20 MG/2 ML VIAL IVPUSH (08:52)
== END 2022-10-04 12:00 | disposition home or self-care (01) | DRG 403 ==
LOC: HO.SSSA 11:25 → HO.S3 11:27
PROVIDERS: Physician Assistant Surgical; Admitting Provider Surgery; PCP Nurse Practitioner Family; Visit Provider Surgery
PROC: 0DB64Z3 Excision of Stomach, Percutaneous Endoscopic Approach, Vertical (ICD-10-PCS; CPT 43845; principal; 2022-10-03 07:30)
DX: E66.01 Morbid (severe) obesity due to excess calories (principal); K44.0 Diaphragmatic hernia with obstruction, without gangrene; E78.5 Hyperlipidemia, unspecified; Z21 Asymptomatic human immunodeficiency virus [HIV] infection status; R73.03 Prediabetes; I10 Essential (primary) hypertension; Q43.3 Congenital malformations of intestinal fixation; F31.9 Bipolar disorder, unspecified; F41.9 Anxiety disorder, unspecified; Z68.30 Body mass index [BMI] 30.0-30.9, adult; Z20.822 Contact with and (suspected) exposure to COVID-19; Z79.899 Other long term (current) drug therapy
CPT/HCPCS: 36415; 80048; 80053; 80061; 83036; 83525; 84443; 85014; 85018; 85025; 85610; 85730; 86140; 86850; 86900; 86901; 87635; 88307; 88342; A4649; C9088; J0131; J0690; J1100; J1170; J2250; J2370; J2405; J2795; J3010

== ENCOUNTER → 2022-10-07 09:26 | Outpatient (BNVA) | payer OTHER, SELFPAY | PROVIDERS: Visit Provider Counselor Mental Health | DX: F43.10 Post-traumatic stress disorder, unspecified (principal); F31.32 Bipolar disorder, current episode depressed, moderate; Z98.84 Bariatric surgery status | CPT/HCPCS: 90834 ==

== ENCOUNTER → 2022-10-08 13:02 | Outpatient (BNVA) | payer OTHER, SELFPAY | PROVIDERS: PCP Nurse Practitioner Family; Visit Provider Physician Assistant Surgical | DX: Z13.89 Encounter for screening for other disorder (principal) ==

== ENCOUNTER → 2022-10-21 11:10 | Outpatient (BNVA) | payer OTHER, SELFPAY | PROVIDERS: PCP Nurse Practitioner Family; Visit Provider Physician Assistant Surgical | DX: Z13.89 Encounter for screening for other disorder (principal) ==

== ENCOUNTER 2022-10-21 12:03 | Outpatient (REF) | payer OTHER, SELFPAY ==
--- NOTE | ~2022-10-21 | US_ITS ---
EXAMINATION: US VENOUS ULTRASOUND WITH DOPPLER LOWER EXTREMITY, BILATERAL CLINICAL INFORMATION: Left lower extremity pain. COMPARISON: None TECHNIQUE: Ultrasound of the deep veins is performed from the hip to the calf with compression sonography and color and pulse Doppler assessment. Spectral analysis with color-flow imaging is performed. FINDINGS: RIGHT: There is normal venous compression and respiratory variation and augmented flow. The visualized common femoral vein, superficial femoral vein, profunda femoral vein, popliteal vein, and the trifurcation region shows no evidence of deep venous thrombosis. No right popliteal cyst. The subcutaneous soft tissues are unremarkable. LEFT: There is normal venous compression and respiratory variation and augmented flow. The visualized common femoral vein, superficial femoral vein, profunda femoral vein, popliteal vein, and the trifurcation region shows no evidence of deep venous thrombosis. No left popliteal cyst. The subcutaneous soft tissues are unremarkable. If the patient's symptoms persist, followup ultrasound in 5 days 7 days might be of value to exclude proximal propagation from a non-visualized calf vein. US/US venous duplex LE BI IMPRESSION: No evidence for deep venous thrombosis in the visualized veins of the bilateral lower extremities.
== END 2022-10-21 12:04 | disposition home or self-care (01) ==
LOC: HO.US 12:03
PROVIDERS: Visit Provider Surgery
DX: M79.606 Pain in leg, unspecified (principal); E66.3 Overweight
CPT/HCPCS: 90834; 93970

== ENCOUNTER → 2022-11-18 10:17 | Outpatient (BNVA) | payer OTHER, SELFPAY | PROVIDERS: PCP Nurse Practitioner Family; Visit Provider Counselor Mental Health | DX: F43.10 Post-traumatic stress disorder, unspecified (principal); F31.32 Bipolar disorder, current episode depressed, moderate; Z98.84 Bariatric surgery status | CPT/HCPCS: 90834 ==

== ENCOUNTER → 2022-12-09 08:21 | Outpatient (BNVA) | payer OTHER, SELFPAY | PROVIDERS: PCP Nurse Practitioner Family; Visit Provider Counselor Mental Health ==

== ENCOUNTER → 2023-01-13 09:56 | Outpatient (BNVA) | payer OTHER, SELFPAY | PROVIDERS: PCP Nurse Practitioner Family; Visit Provider Counselor Mental Health ==

== ENCOUNTER → 2023-02-10 09:54 | Outpatient (BNVA) | payer OTHER, SELFPAY | PROVIDERS: PCP Nurse Practitioner Family; Visit Provider Physician Assistant Surgical | DX: Z98.84 Bariatric surgery status (principal) | CPT/HCPCS: 99212 ==

== ENCOUNTER → 2023-02-12 17:00 | Outpatient (BNVA) | payer OTHER, SELFPAY | PROVIDERS: PCP Nurse Practitioner Family; Visit Provider Counselor Mental Health | DX: F31.32 Bipolar disorder, current episode depressed, moderate (principal); F43.10 Post-traumatic stress disorder, unspecified; Z98.84 Bariatric surgery status | CPT/HCPCS: 90853 ==

== ENCOUNTER → 2023-02-19 17:11 | Outpatient (BNVA) | payer OTHER, SELFPAY | PROVIDERS: PCP Nurse Practitioner Family; Visit Provider Counselor Mental Health | DX: F43.10 Post-traumatic stress disorder, unspecified (principal); F31.32 Bipolar disorder, current episode depressed, moderate; Z98.84 Bariatric surgery status | CPT/HCPCS: 90853 ==

== ENCOUNTER → 2023-02-24 10:34 | Outpatient (BNVA) | payer OTHER, SELFPAY | PROVIDERS: PCP Nurse Practitioner Family; Visit Provider Counselor Mental Health ==

== ENCOUNTER → 2023-03-10 13:55 | Outpatient (BNVA) | payer OTHER, SELFPAY | PROVIDERS: PCP Nurse Practitioner Family; Visit Provider Dietitian, Registered | DX: E66.9 Obesity, unspecified (principal); Z98.84 Bariatric surgery status; Z68.22 Body mass index [BMI] 22.0-22.9, adult | CPT/HCPCS: 97803 ==

== ENCOUNTER → 2023-03-26 14:11 | Outpatient (BNVA) | payer OTHER, SELFPAY | PROVIDERS: PCP Nurse Practitioner Family; Visit Provider Counselor Mental Health ==

== ENCOUNTER 2023-03-31 09:15 | Outpatient (AMB) | payer OTHER, SELFPAY ==
[2023-03-31 09:17] VITALS: BP 122/75; PULSE 62; TEMP 35.9; O2SAT 100; BMI 23.3
--- NOTE | 2023-03-31 09:17 | MHC.OFFVISWM ---
Intake VS Expanded 03/31/23 09:17 Height 5 ft 9 in Weight 158 lb BMI 23.3 BP 122/75 Blood Pressure Location Lt brachial Blood Pressure Position Sitting Pulse 62 Pulse Source Pulse Oximeter Temp 96.6 F L Temperature Source Temporal Artery Scan Pulse Oximetry 100 Oxygen Delivery Method Room Air Body Fat 25.4 Body Fat Percentage 16.1 Free Fat Mass 132.4 Muscle Mass 125.8 Visceral Mass 6.0 Water Mass 94.0 BMR 1,723 Intake Visit Reasons: (OV) PO LSG 10/03/22 Allergies No Known Drug Allergies Allergy (Unknown, Verified 03/31/23 10:07) Unknown HPI HPI Comments History of Present Illness Details This?a?42?yo male who is s/p LSG without hiatal hernia repair on?10/03/22. Presents for 6 month post op visit. Weight today is 158 pounds, with a BMI of 23.3.? There has been a 94.4 pound weight loss,(initial weight 252.4 pounds) since starting the program on 06/10/22 reflecting a 37.4% total body weight loss and a weight loss of 46.5 pounds since surgery (operative weight 204.5 pounds) reflecting a 22.7% TBWL since surgery.? No complaints of nausea, emesis, abdominal pain or reflux. Reports infrequent but normal bowel movements every 1-2 days and uses stool softeners regularly. He has been doing great and has no significant complaints. Taking Fusion MVI and Genaro+ D He reports that he feels great and that he has good energy and is being mindful of his eating.? Present meal plan includes: Isopure 2 scoops in almond milk ZP bar or Premier Protein RTD at lunch meal : Salad with protein (chicken/turkey/seafood), 10 forks protein/salad, 5pm drinking 96 oz water daily ? Exercise routine includes: Outdoor bike 1 hour daily?? Any post op complications: none MARI: resolved DM: never HTN: resolved Hyperlipidemia: resolved GERD:?0-5 scale ??0 = no symptoms ??1 = symptoms noticeable but not bothersome 2 =symptoms bothersome but not daily ? 3 = symptoms bothersome and daily 4 = symptoms affect daily activities 5 = symptoms are incapacitating, unable to do daily activities ? How bad is the heartburn: 0 ? Heartburn while lying down: 0 ? Heartburn when standing up: 0 ? Heartburn after meals: 0 ? Does heartburn change your diet: 0 ? Does heartburn wake you up from sleep: 0 ? Do you have difficulty swallowin ? Do you have pain with swallowin ? If you take medicine for your reflux, does this affect your daily life: 0 Satisfaction with present condition - satisfied or not satisfied: satisfied [facility] Medical History Back pain Bipolar disorder BMI 31.0-31.9,adult BMI 34.0-34.9,adult BMI 37.0-37.9, adult Depression GERD (gastroesophageal reflux disease) HIV positive Hyperlipidemia Hypertension Murmur, heart Obesity Prediabetes Sleep apnea Surgical History H/O nasal septoplasty H/O rectal polypectomy History of laparoscopic appendectomy (~2020) Hx of tonsillectomy Social History Are you a primary clinical care leader to a significant other at home: No Do you presently have visiting nurse or other home services: No Alcohol intake: never Patient Tobacco Use Status: Never used Tobacco Physical Exam Vital Signs: BMI result Body Mass Index 23.3 Const General: cooperative and no acute distress Orientation/consciousness: patient oriented x3 Resp Effort & Inspection: normal respiratory effort Auscultation: clear to auscultation bilaterally Cardio Rate: regular rate Rhythm: regular rhythm GI Inspection: Yes normal to inspection and Yes incision (well healed) Palpation (GI): Soft to palpation and no masses Neuro General: patient oriented x3 Assessment & Plan Assessment & Plan (1) S/P laparoscopic sleeve gastrectomy: Code(s): Z98.84 - Bariatric surgery status Plan: check 6 month post op labs continue meal plan rtc 3 months Orders: Orders Vitamin B12 and Folate Today E78.5 - Hyperlipidemia, unspecified, I10 - Essential (primary) hypertension, K76.0 - Fatty (change of) liver, not elsewhere classified, Z98.84 - Bariatric surgery status Basic Metabolic Panel Today E78.5 - Hyperlipidemia, unspecified, I10 - Essential (primary) hypertension, K76.0 - Fatty (change of) liver, not elsewhere classified, Z98.84 - Bariatric surgery status C Reactive Protein Today E78.5 - Hyperlipidemia, unspecified, I10 - Essential (primary) hypertension, K76.0 - Fatty (change of) liver, not elsewhere classified, Z.84 - Bariatric surgery status Ferritin Today E78.5 - Hyperlipidemia, unspecified, I10 - Essential (primary) hypertension, K76.0 - Fatty (change of) liver, not elsewhere classified, Z.84 - Bariatric surgery status Insulin Today E78.5 - Hyperlipidemia, unspecified, I10 - Essential (primary) hypertension, K76.0 - Fatty (change of) liver, not elsewhere classified, Z.84 - Bariatric surgery status IRON PROFILE Today E78.5 - Hyperlipidemia, unspecified, I10 - Essential (primary) hypertension, K76.0 - Fatty (change of) liver, not elsewhere classified, Z.84 - Bariatric surgery status Lipid Panel Today E78.5 - Hyperlipidemia, unspecified, I10 - Essential (primary) hypertension, K76.0 - Fatty (change of) liver, not elsewhere classified, Z.84 - Bariatric surgery status PTHI Today E78.5 - Hyperlipidemia, unspecified, I10 - Essential (primary) hypertension, K76.0 - Fatty (change of) liver, not elsewhere classified, Z.84 - Bariatric surgery status TSH reflex Free T4 Today E78.5 - Hyperlipidemia, unspecified, I10 - Essential (primary) hypertension, K76.0 - Fatty (change of) liver, not elsewhere classified, Z.84 - Bariatric surgery status Vitamin A Today E78.5 - Hyperlipidemia, unspecified, I10 - Essential (primary) hypertension, K76.0 - Fatty (change of) liver, not elsewhere classified, Z.84 - Bariatric surgery status Vitamin B1 Today E78.5 - Hyperlipidemia, unspecified, I10 - Essential (primary) hypertension, K76.0 - Fatty (change of) liver, not elsewhere classified, Z.84 - Bariatric surgery status Vitamin D 25-OH Total Today E78.5 - Hyperlipidemia, unspecified, I10 - Essential (primary) hypertension, K76.0 - Fatty (change of) liver, not elsewhere classified, Z.84 - Bariatric surgery status Zinc Today E78.5 - Hyperlipidemia, unspecified, I10 - Essential (primary) hypertension, K76.0 - Fatty (change of) liver, not elsewhere classified, Z98.84 - Bariatric surgery status Complete Blood Count Auto Diff Today E78.5 - Hyperlipidemia, unspecified, I10 - Essential (primary) hypertension, K76.0 - Fatty (change of) liver, not elsewhere classified, Z98.84 - Bariatric surgery status Coding Level of Care Code Est Pt Level 3 (89912) Diagnoses S/P laparoscopic sleeve gastrectomy Z98.84
== END 2023-03-31 10:13 | disposition home or self-care (01) ==
PROVIDERS: PCP Nurse Practitioner Family; Visit Provider Physician Assistant Surgical
DX: E78.5 Hyperlipidemia, unspecified (principal); I10 Essential (primary) hypertension; Z98.84 Bariatric surgery status; Z90.3 Acquired absence of stomach [part of]
CPT/HCPCS: 99213

== ENCOUNTER → 2023-03-31 09:15 | Outpatient (BNVA) | payer OTHER, SELFPAY | PROVIDERS: PCP Nurse Practitioner Family; Visit Provider Physician Assistant Surgical | DX: K76.0 Fatty (change of) liver, not elsewhere classified (principal); I10 Essential (primary) hypertension; E78.5 Hyperlipidemia, unspecified; Z98.84 Bariatric surgery status | CPT/HCPCS: 99212 ==

== ENCOUNTER 2023-04-14 10:20 | Outpatient (AMB) | payer OTHER, SELFPAY ==
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
== END 2023-04-14 11:52 | disposition home or self-care (01) ==
PROVIDERS: PCP Nurse Practitioner Family; Visit Provider Counselor Mental Health
DX: F43.10 Post-traumatic stress disorder, unspecified (principal); F31.32 Bipolar disorder, current episode depressed, moderate; Z98.84 Bariatric surgery status
CPT/HCPCS: 90834

== ENCOUNTER → 2023-04-14 10:20 | Outpatient (BNVA) | payer OTHER, SELFPAY | PROVIDERS: PCP Nurse Practitioner Family; Visit Provider Counselor Mental Health | DX: F43.10 Post-traumatic stress disorder, unspecified (principal); F31.32 Bipolar disorder, current episode depressed, moderate; Z98.84 Bariatric surgery status ==

== ENCOUNTER 2023-04-28 10:28 | Outpatient (AMB) | payer OTHER, SELFPAY ==
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
== END 2023-04-28 14:01 | disposition home or self-care (01) ==
PROVIDERS: PCP Nurse Practitioner Family; Visit Provider Counselor Mental Health
DX: F43.10 Post-traumatic stress disorder, unspecified (principal); F31.32 Bipolar disorder, current episode depressed, moderate; Z98.84 Bariatric surgery status
CPT/HCPCS: 90834

== ENCOUNTER → 2023-04-28 10:28 | Outpatient (BNVA) | payer OTHER, SELFPAY | PROVIDERS: PCP Nurse Practitioner Family; Visit Provider Counselor Mental Health | DX: F43.10 Post-traumatic stress disorder, unspecified (principal); F31.32 Bipolar disorder, current episode depressed, moderate; Z98.84 Bariatric surgery status ==

== ENCOUNTER → 2023-06-09 09:01 | Outpatient (BNVA) | payer OTHER, SELFPAY | PROVIDERS: PCP Nurse Practitioner Family; Visit Provider Counselor Mental Health ==

== ENCOUNTER 2023-08-25 11:04 | Outpatient (AMB) | payer OTHER, SELFPAY ==
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
== END 2023-09-11 14:11 | disposition home or self-care (01) ==
PROVIDERS: PCP Nurse Practitioner Family; Visit Provider Counselor Mental Health
DX: F43.10 Post-traumatic stress disorder, unspecified (principal); F31.32 Bipolar disorder, current episode depressed, moderate; Z98.84 Bariatric surgery status
CPT/HCPCS: 90834

== ENCOUNTER → 2023-08-25 11:04 | Outpatient (BNVA) | payer OTHER, SELFPAY | PROVIDERS: PCP Nurse Practitioner Family; Visit Provider Counselor Mental Health ==

== ENCOUNTER 2025-01-31 12:27 | Outpatient (AMB) | payer OTHER, SELFPAY ==
--- OUTSIDE RECORDS SUMMARY | 2025-01-31 12:54 | XMS_ITS | Data Portability ---
Author Organization [facility], Allergy Address [address] [facility] [address] [place] [address] Care Team Providers Care Equity Research Associate Name Role Phone DONNELL BAKER Primary Care Provider [phone] Assessment Encounter Date Assessment Date Assessment LastModified by Organization Details LastModified Time 09/08/2024 09/08/2024 Bilateral tinnitus and light headedness. Hx of migraine and HIV disease history of noise exposure working on the [employer] in [place] and as a [employer] Audiogram from April was normal. Examination is normal without nystagmus or imbalance. Suggest idiopathic tinnitus and migraine as the diagnosis. I think things are complicated by his bipolar as well. I have suggested magnesium oxide up to 400 mg and riboflavin up to 400 mg daily for migraine prevention. He will check with his infectious disease specialist to make sure there are no contraindications . I have also given him a list of migraine triggers to avoid. [email or web address] Not available 09/08/2024 13:27:36 Plan of Treatment Reminders Order Date Submit Date Provider Last Modified By Organization Details Last Modified Time Details Appointments None record ed. Lab None record ed. Referral None record ed. Procedures None record ed. Surgeries None record ed. Imaging None record ed. Medication Orders None record ed. Patient TargetsNo targets recorded. Patient InstructionsNo instructions recorded. Reason for Referral None Reported. Problems Name Problem SNOMED Code Status Onset Date Resolution Date Notes Provider Name and Address Organization Details Recorded Time Bilateral tinnitus 0325612135925 Active 2023 TORRIE BROWN MD [address] [facility], [place], [address] [place] - [facility] 13:27:44 Lightheaded ness 881732495 Active 2023 TORRIE BROWN MD [address], [address], [facility] 4 13:27:48 Human immunodefic iency virus infection 40998072 Active 2023 TORRIE BROWN MD [address] [address], [place], [address], [facility] 4 13:27:58 Migraine 58965726 Active 2023 TORRIE BROWN MD [address] [address], [place], [address], [facility] 13:28:07 Problem Notes None recorded. Medical Equipment None Reported. Allergies No known drug allergies Medications Name Sig Start Date Stop Date Status Note LastModified by Organization Details LastModified Time doxycycline hyclate 100 mg capsule TAKE 2 CAPSULES WITHIN 48 HOURS OF UNPROTECT ED SEX. NO MORE THAN 2 CAPSULES IN 24HOURS 09/08 completed Not Available Not Available Not Available atorvastati n 20 mg tablet TAKE 1 TABLET BY MOUTH DAILY active Not Available Not Available No t Available quetiapine 100 mg tablet TAKE 1 TABLET BY MOUTH DAILY AT BEDTIME,X 90 DAYS,INST R:PER ONE TIME PSYCHAITR Y FOR PTSD active Not Available Not Available No t Available Odefsey 200 mg-25 mg-25 mg tablet TAKE 1 TABLET BY MOUTH EVERY DAY WITH FOOD active Not Available Not Available No t Available Vitals None Recorded Social History None recorded. Functional Status None recorded. Mental Status None recorded. Family History Nothing Reported. Medical History Condition Response Anxiety Y Depression Y Kidney Disease Y Past Encounters Encounter ID Performer Location Encounter Start Date Encounter Closed Date Diagnosis/Indication Diagnosis SNOMED-CT Code Diagnosis ICD10 Code Diagnosis Note [id number] TORRIE GTZ MD [facility] [address] [place] [address] 09/08/2024 12:30:20 09/08/2024 13:31:09 Bilateral tinnitus 2151907549 102 H93.13 Today we discussed the pathophysi ology of tinnitus and the absence of consistent ly successful pharmacolo gic treatments for tinnitus. We discussed masking strategies to decrease awareness of the tinnitus, including using a white noise machine, music, Replise tinnitus darell or television . We discussed how exposure to loud noise can worsen tinnitus so I recommende d hearing protection . We also discussed other ways to potentiall y help reduce awareness of tinnitus including avoidance of caffeine, salty meals and NSAIDs. Lightheadedness 44778022 8 R42 Human immunodeficiency virus infection [id number] B20 Migraine 12846862 G43.90 9 Suspect underlying migraine headache. Suggest reduction of cheese, chocolate, citrus fruit, cold cuts, nuts, MSG and alcohol. Suggest trial of magnesium oxide 2 to 400 mg daily and riboflavin 400 mg daily. Associatio n of migraine disorders website given, vance [email or web address] for additional informatio n. He will contact me in a few weeks with an update. Health Concerns Section Related Observation LastModified by Organization Detai ls LastModified Time None Recorded Concern Status LastModified by Organization Details LastModified Time None Recorded Advance Directives Directive None Recorded Payers Insurance Date Sequence Insurance Name Policy Number Policy Killian Covered Member ID Killian Member ID Guarantor Name 09/08/2024 1 [facility] (MEDICAID HMO) Isra Barr [id number] Isra Barr 09/08/2024 1 [facility] (MEDICAID HMO) [id number] Isra Irby [id number] Isra Barr Notes Date Note Type Note Provider Name and Address Organization Details Recorded Time 09/08/2024 text/html Bilateral tinnit us and light headedness. 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 - [facility] 09/08/2024 13:30:15
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
[2025-01-31 13:32] VITALS: BP 111/64; PULSE 64; TEMP 36.3; O2SAT 100; BMI 25.8
== END 2025-01-31 14:00 | disposition home or self-care (01) ==
LOC: HO.HBS 12:27
PROVIDERS: PCP Nurse Practitioner Family; Visit Provider Physician Assistant Surgical
DX: Z71.3 Dietary counseling and surveillance (principal); Z98.84 Bariatric surgery status
CPT/HCPCS: 99213; G2211

== ENCOUNTER → 2025-01-31 12:27 | Outpatient (BNVA) | payer OTHER, SELFPAY | PROVIDERS: PCP Nurse Practitioner Family; Visit Provider Physician Assistant Surgical | DX: E53.8 Deficiency of other specified B group vitamins (principal); E55.9 Vitamin D deficiency, unspecified; K76.0 Fatty (change of) liver, not elsewhere classified; Z98.84 Bariatric surgery status | CPT/HCPCS: 99212 ==

== ENCOUNTER 2025-02-07 10:56 | Outpatient (REF) | payer OTHER, SELFPAY ==
--- OUTSIDE RECORDS SUMMARY | 2025-02-07 11:38 | XMS_ITS | Data Portability ---
Author Organization [facility], Allergy Address [address] [facility] [place] [address] [place] [address] Care Team Providers Care Turner In Name Role Phone DONNELL BAKER Primary Care Provider Assessment Encounter Date Assessment Date Assessment LastModified by Organization Details LastModified Time 09/08/2024 09/08/2024 Bilateral tinnitus and light headedness. Hx of migraine and HIV disease history of noise exposure working on the [employer] in [place] and as a [employer] Audiogram from April was normal. Examination is [...] Address Organization Details Recorded Time Bilateral tinnitus [id number] Active 2023 TORRIE BROWN MD 100 [facility], [place], [address] [place] - [facility] 13:27:44 Lightheaded ness [id number] Active 2023 TORRIE BROWN MD [address], [address], [facility] 4 13:27:48 Human immunodefic iency virus infection 72319792 Active 2023 TORRIE BROWN MD [address] [address], [place], [address], [facility] 4 13:27:58 Migraine 67458850 Active 2023 TORRIE BROWN MD [address] [address], [place], [address], [facility] 13:28:07 Problem Notes None recorded. Medical [...] SNOMED-CT Code Diagnosis ICD10 Code Diagnosis Note [id number] TORRIE GTZ MD [facility] 100 [place] [address] 09/08/2024 12:30:20 09/08/2024 13:31:09 Bilateral tinnitus [id number] 102 H93.13 Today we discussed the pathophysi ology of tinnitus and the absence of consistent ly successful pharmacolo gic treatments for tinnitus. We discussed masking strategies to decrease awareness of the tinnitus, including using a white noise machine, music, [employer] tinnitus darell or television . We discussed how exposure to loud noise can worsen tinnitus so I recommende d hearing protection . We also discussed other ways to potentiall y help reduce awareness of tinnitus including avoidance of caffeine, salty meals and NSAIDs. Lightheadedness [id number] 8 R42 Human immunodeficiency virus infection 72898620 B20 Migraine [id number] G43.90 9 Suspect underlying migraine headache. Suggest [...] Killian Member ID Guarantor Name 09/08/2024 1 [facility] (MEDICAID HMO) Isra Barr [id number] Isra Barr 09/08/2024 1 [facility] (MEDICAID HMO) [id number] Isra Irby [id number] Isra Barr Notes Date Note Type Note Provider Name and Address Organization Details Recorded Time 09/08/2024 text/html Bilateral tinnit us and light headedness. 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
[2025-02-07 11:47] LABS: Basophils Percent Auto 0.9 % (0-2); Eosinophils Absolute Auto 0.1 X10*3/uL (0.0-0.4); Eosinophils Percent Auto 1.5 % (0-4); Hematocrit 45.7 % (42.0-52.0); Hemoglobin 15.2 g/dl (14.0-18.0); Lymphocytes Absolute Auto 2.8 X10*3/uL (1.2-4.9); Lymphocytes Percent Auto 61.5 % (20-40); MANUAL DIFF FLAG SCAN; Mean Corpuscular HGB Conc 33.3 g/dl (31.0-36.0); Mean Corpuscular Hemoglobin 28.5 pg (27.0-33.0); Mean Corpuscular Volume 85.7 fL (80.0-98.0); Mean Platelet Volume 9.8 fL (9.4-12.4); Monocytes Absolute Auto 0.4 X10*3/uL (0.1-1.2); Neutrophils Absolute Auto 1.2 x10*3/uL (2.0-8.3); Neutrophils Percent Auto 27.1 % (45-73); Platelet Count 243 X10*3/uL (160-400); Red Blood Count 5.33 X10*6/uL (4.60-5.80); Red Cell Distribution Width 13.2 % (11.0-16.0); SCAN SMEAR FLAG 1; White Blood Count 4.6 X10*3/uL (4.8-10.8)
[2025-02-07 12:08] LABS: Estimated Average Glucose 100 mg/dL; Hemoglobin A1C 128.9106 umol/L; Hemoglobin A1c % 5.1 % (<6.0); Total Hemoglobin (HGBA1C) 3943.4824 umol/L
[2025-02-07 12:24] LABS: SLIDE REVIEW VERIFIED
[2025-02-07 12:33] LABS: Alanine Aminotransferase 49 U/L (0-40); Albumin Level 4.7 g/dL (3.5-5.0); Alkaline Phosphatase 63 U/L (39-117); Anion Gap 12 (12-20); Aspartate Amino Transferase 21 U/L (5-37); Bilirubin Total 0.9 mg/dL (0.0-1.0); Blood Urea Nitrogen 14 mg/dL (9-16); C Reactive Protein 0.22 mg/dL (< or = 0.50); Calcium 9.6 mg/dL (8.4-10.2); Carbon Dioxide 30 mmol/L (22-29); Chloride 105 mmol/L (96-108); Cholesterol 172 mg/dL (<200); Estimated Glomerular Filt Rate > 60; Glucose Random 89 mg/dL (60-115); HDL Cholesterol 60 mg/dL (>40); Iron 190 mcg/dL (45-160); LDL Cholesterol Calculated 96 mg/dL (<100); Percent Iron Saturation 68 % (15-50); Potassium 3.7 mmol/L (3.3-5.1); Sodium 143 mmol/L (135-145); Total Iron Binding Capacity 281 mcg/dL (228-428); Total Protein 7.2 g/dL (6.5-8.0); Triglycerides 81 mg/dL (<150); Unsaturated Iron Binding 91 ug/dL
[2025-02-07 12:38] LABS: Ferritin 431 ng/mL (20-250); TSH reflex Free T4 0.55 uIU/mL (0.32-4.0); Vitamin D 25-OH Total 20.4 ng/mL (>30)
[2025-02-07 12:49] LABS: Vitamin B12 466 pg/mL (200-900)
[2025-02-07 12:54] LABS: Insulin 7 uU/mL (2-29)
[2025-02-10 00:59] LABS: Zinc 88 mcg/dL (60-130)
[2025-02-10 22:04] LABS: Vitamin A 65 mcg/dL (38-98)
[2025-02-13 14:04] LABS: Vitamin B1 9 nmol/L (8-30)
== END 2025-02-07 10:57 | disposition home or self-care (01) ==
LOC: HO.LAB 10:56
PROVIDERS: PCP Physician Assistant; Visit Provider Physician Assistant Surgical
DX: Z98.84 Bariatric surgery status (principal); K76.0 Fatty (change of) liver, not elsewhere classified; E55.9 Vitamin D deficiency, unspecified; E53.8 Deficiency of other specified B group vitamins
CPT/HCPCS: 36415; 80053; 80061; 82306; 82607; 82728; 82746; 83036; 83525; 83540; 84425; 84443; 84590; 84630; 85025; 86140

== ENCOUNTER 2025-02-15 08:10 | Outpatient (AMB) | payer OTHER, SELFPAY ==
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
--- OUTSIDE RECORDS SUMMARY | 2025-02-15 08:13 | XMS_ITS | Data Portability ---
Author Organization [facility], Allergy Address 100 [facility] 100 [place] [address] Care Team Providers Care Game Design Instructor Name Role Phone DONNELL BAKER Primary Care Provider Assessment Encounter Date Assessment Date Assessment LastModified by Organization Details LastModified Time 09/08/2024 09/08/2024 Bilateral tinnitus and light headedness. Hx of migraine and HIV disease history of noise exposure working on the [employer] in [place] and as a [employer] Audiogram from April was normal. Examination is [...] Address Organization Details Recorded Time Bilateral tinnitus [id number] Active 2023 TORRIE BROWN MD 100 [facility], [address], [place], [address] [place] - [facility] 13:27:44 Lightheaded ness 657012816 Active 2023 TORRIE BROWN MD [address], [address], [facility] 4 13:27:48 Human immunodefic iency virus infection 95132155 Active 2023 TORRIE BROWN MD [address] [address], [place], [address], [facility] 4 13:27:58 Migraine 62268583 Active 2023 TORRIE BROWN MD [address] [address], [place], [address], [facility] 13:28:07 Problem Notes None recorded. Medical [...] History Nothing Reported. Medical History Condition Response Depression Y Kidney Disease Y Anxiety Y Past Encounters Encounter ID Performer Location Encounter Start Date Encounter Closed Date Diagnosis/Indication Diagnosis SNOMED-CT Code Diagnosis ICD10 Code Diagnosis Note [id number] TORRIE GTZ MD [facility] 100 [place] [address] 09/08/2024 12:30:20 09/08/2024 13:31:09 Bilateral tinnitus 8614581277 102 H93.13 Today we discussed the pathophysi ology of tinnitus and the absence of consistent ly successful pharmacolo gic treatments for tinnitus. We discussed masking strategies to decrease awareness of the tinnitus, including using a white noise machine, music, [employer] tinnitus darell or television . We discussed how exposure to loud noise can worsen tinnitus so I recommende d hearing protection . We also discussed other ways to potentiall y help reduce awareness of tinnitus including avoidance of caffeine, salty meals and NSAIDs. Lightheadedness 15658539 8 R42 Human immunodeficiency virus infection 50740182 B20 Migraine 67201141 G43.90 9 Suspect underlying migraine headache. Suggest [...] Killian Member ID Guarantor Name 09/08/2024 1 [facility] (MEDICAID HMO) Isra Barr [id number] Isra Barr 09/08/2024 1 [facility] (MEDICAID HMO) [id number] Isra Irby [id number] Isra Barr Notes Date Note Type Note Provider Name and Address Organization Details Recorded Time 09/08/2024 text/html Bilateral tinnit us and light headedness. 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
== END 2025-02-15 09:28 | disposition home or self-care (01) ==
LOC: HO.HBST 08:10
PROVIDERS: PCP Physician Assistant; Visit Provider Counselor Mental Health
DX: F43.10 Post-traumatic stress disorder, unspecified (principal); Z98.84 Bariatric surgery status
CPT/HCPCS: 90791

== ENCOUNTER 2025-02-28 13:54 | Outpatient (AMB) | payer OTHER, SELFPAY ==
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
[2025-02-28 14:22] VITALS: BP 110/70; PULSE 81; TEMP 36.4; O2SAT 100; BMI 25.6
--- OUTSIDE RECORDS SUMMARY | 2025-02-28 15:49 | XMS_ITS | Data Portability ---
Author Organization [facility], Allergy Address [address] [place] [address] [address] [place] [address] Care Team Providers Care Field Nurse Case Manager Name Role Phone DONNELL BAKER Primary Care Provider Assessment Encounter Date Assessment Date Assessment LastModified by Organization Details LastModified Time 09/08/2024 09/08/2024 Bilateral tinnitus and light headedness. Hx of migraine and HIV disease history of noise exposure working on the [employer] in [place] and as a [employer] Audiogram from April was normal. Examination is [...] Address Organization Details Recorded Time Bilateral tinnitus [id number] Active 2023 TORRIE BROWN MD 100 [facility], [address], [place], [address] [place] - [facility] 13:27:44 Lightheaded ness [id number] Active 2023 TORRIE BROWN MD [address], [address], [facility] 4 13:27:48 Human immunodefic iency virus infection 42491975 Active 2023 TORRIE BROWN MD [address] [address], [place], [address], [facility] 4 13:27:58 Migraine 70655579 Active 2023 TORRIE BROWN MD [address] [address], [place], [address], [facility] 13:28:07 Problem Notes None recorded. Medical Equipment [...] SNOMED-CT Code Diagnosis ICD10 Code Diagnosis Note [id number] TORRIE GTZ MD [facility] [address] [place] [address] 09/08/2024 12:30:20 09/08/2024 13:31:09 Bilateral tinnitus [id number] 102 H93.13 Today we discussed the pathophysi ology of tinnitus and the absence of consistent ly successful pharmacolo gic treatments for tinnitus. We discussed masking strategies to decrease awareness of the tinnitus, including using a white noise machine, music, [employer] tinnitus darell or television . We discussed how exposure to loud noise can worsen tinnitus so I recommende d hearing protection . We also discussed other ways to potentiall y help reduce awareness of tinnitus including avoidance of caffeine, salty meals and NSAIDs. Lightheadedness 26008967 8 R42 Human immunodeficiency virus infection 45294443 B20 Migraine 87982406 G43.90 9 Suspect underlying migraine headache. Suggest [...] Killian Member ID Guarantor Name 09/08/2024 1 [facility] (MEDICAID HMO) Isra Barr [id number] Isra Barr 09/08/2024 1 [facility] (MEDICAID HMO) [id number] Isra Irby [id number] Isra Barr Notes Date Note Type Note Provider Name and Address Organization Details Recorded Time 09/08/2024 text/html Bilateral tinnit us and light headedness. 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
== END 2025-02-28 14:37 | disposition home or self-care (01) ==
LOC: HO.HBS 13:55
PROVIDERS: PCP Nurse Practitioner Family; Visit Provider Physician Assistant Surgical
DX: Z71.3 Dietary counseling and surveillance (principal); Z98.84 Bariatric surgery status
CPT/HCPCS: 99213

== ENCOUNTER → 2025-02-28 13:54 | Outpatient (BNVA) | payer OTHER, SELFPAY | PROVIDERS: PCP Nurse Practitioner Family; Visit Provider Physician Assistant Surgical | DX: Z98.84 Bariatric surgery status (principal) | CPT/HCPCS: 99212 ==

== ENCOUNTER 2025-03-03 09:06 | Outpatient (AMB) | payer OTHER, SELFPAY ==
--- NOTE | 2025-03-03 09:00 | A.OFFWM_ITS ---
Intake Intake Visit Reasons: VIDEO PO LSG 10/03/22 Allergies No Known Drug Allergies Allergy (Unknown, Verified 04/11/25 10:12) Unknown [facility] Medical History Back pain Bipolar disorder BMI 31.0-31.9,adult BMI 34.0-34.9,adult BMI 37.0-37.9, adult Depression GERD (gastroesophageal reflux disease) HIV positive Hyperlipidemia Hypertension Murmur, heart Obesity Prediabetes Sleep apnea Surgical History Hx of tonsillectomy H/O nasal septoplasty H/O rectal polypectomy History of laparoscopic appendectomy (~2020) Social History Are you a primary hiv/aids care nurse to a significant other at home: No Do you presently have visiting nurse or other home services: No Alcohol intake: never Patient Tobacco Use Status: Never used Tobacco Behavioral Health Assessment Weight Management Therapy Therapy Notes Details Subjective: The patient reports ongoing efforts to establish and maintain personal and professional boundaries to prioritize self-care. He recognizes a longstanding pattern of people-pleasing, noting that difficulty maintaining boundaries negatively impacts his self-care and, consequently, his weight-loss goals. The patient has observed some progress in this area but expresses uncertainty about maintaining these changes during an upcoming trip. Objective: The patient presents for a post-operative behavioral health appointment via Telehealth. He appears alert, oriented, and engaged throughout the session. Interventions provided during the session included: * Cognitive Behavioral Therapy (CBT) techniques to identify and challenge automatic thoughts related to people-pleasing and boundary-setting * Role-playing scenarios to practice assertive communication skills in preparation for his upcoming trip * Psychoeducation on the importance of self-care and its relationship to long- term weight management * Development of a personalized action plan for maintaining healthy routines and boundaries while traveling * Encouragement to utilize mindfulness strategies to manage stress and prevent emotional eating Assessment/Response: * Mental status: Alert and oriented x3, mood is motivated but mildly anxious about upcoming travel, affect is congruent, thought process is logical and goal-directed, no evidence of psychosis or suicidal ideation. * Risk reported/identified: none The patient was receptive to interventions and actively participated in session exercises. He verbalized understanding of the strategies discussed and expressed willingness to implement them during his trip. Assessment & Plan Assessment & Plan (1) Complex posttraumatic stress disorder: Code(s): F43.10 - Post-traumatic stress disorder, unspecified (2) S/P laparoscopic sleeve gastrectomy: Code(s): Z98.84 - Bariatric surgery status Plan Continue monthly behavioral health support to reinforce boundary-setting, self- care, and relapse prevention strategies. * Next appointment scheduled for 03/31/2025 Telehealth Telehealth Telehealth Platform: [facility] Location of provider rendering services: other (Home office. [place], [place]) Location of patient: address on file Patient Identification confirmed using: Name, : Yes Telehealth method: video Patient verbally consented to treatment: Yes Patient verbally consented to billing insurance company: Yes Patient informed of any privacy concerns related to visit: Yes Minutes spent on Phone/Video with Pt.: 55 Coding Level of Care Code Established Pt Tele Psytx >53 mins (70494) Patient Type Established Diagnoses Complex posttraumatic stress disorder F43.10 S/P laparoscopic sleeve gastrectomy Z98.84 Time Spent (min) 55
--- OUTSIDE RECORDS SUMMARY | 2025-03-03 09:44 | XMS_ITS | Data Portability ---
Author Organization [facility], Allergy Address [address] [place] [address] [address] [place] [address] Care Team Providers Care Draft Roller Picker Name Role Phone DONNELL BAKER Primary Care Provider [phone] Assessment Encounter Date Assessment Date Assessment LastModified by Organization Details LastModified Time 09/08/2024 09/08/2024 Bilateral tinnitus and light headedness. Hx of migraine and HIV disease history of noise exposure working on the [employer] in [place] and as a [employer] Audiogram from April was normal. Examination is [...] Address Organization Details Recorded Time Bilateral tinnitus [id number] Active 2023 TORRIE BROWN MD 100 [facility], [address], [place], [address] [place] - [facility] 13:27:44 Lightheaded ness 961483900 Active 2023 TORRIE BROWN MD [address], [address], [facility] 4 13:27:48 Human immunodefic iency virus infection 08008370 Active 2023 TORRIE BROWN MD [address] [address], [place], [address], [facility] 4 13:27:58 Migraine 13928577 Active 2023 TORRIE BROWN MD [address] [address], [place], [address], [facility] 13:28:07 Problem Notes None recorded. Medical [...] SNOMED-CT Code Diagnosis ICD10 Code Diagnosis Note [id number] TORRIE GTZ MD [facility] 100 [place] [address] 09/08/2024 12:30:20 09/08/2024 13:31:09 Bilateral tinnitus [id number] 102 H93.13 Today we discussed the pathophysi ology of tinnitus and the absence of consistent ly successful pharmacolo gic treatments for tinnitus. We discussed masking strategies to decrease awareness of the tinnitus, including using a white noise machine, music, [employer] tinnitus darell or television . We discussed how exposure to loud noise can worsen tinnitus so I recommende d hearing protection . We also discussed other ways to potentiall y help reduce awareness of tinnitus including avoidance of caffeine, salty meals and NSAIDs. Lightheadedness 75973476 8 R42 Human immunodeficiency virus infection 31913797 B20 Migraine 66543331 G43.90 9 Suspect underlying migraine headache. Suggest [...] Killian Member ID Guarantor Name 09/08/2024 1 [facility] (MEDICAID HMO) Isra Barr [id number] Isra Barr 09/08/2024 1 [facility] (MEDICAID HMO) [id number] Isra Irby [id number] Isra Barr Notes Date Note Type Note Provider Name and Address Organization Details Recorded Time 09/08/2024 text/html Bilateral tinnit us and light headedness. 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
== END 2025-03-03 10:04 | disposition home or self-care (01) ==
LOC: HO.HBST 09:06
PROVIDERS: PCP Nurse Practitioner Family; Visit Provider Counselor Mental Health
DX: F43.10 Post-traumatic stress disorder, unspecified (principal); Z98.84 Bariatric surgery status
CPT/HCPCS: 90837

== ENCOUNTER 2025-03-31 09:17 | Outpatient (AMB) | payer OTHER, SELFPAY ==
--- NOTE | 2025-03-31 09:05 | MHC.WMTHER ---
Intake Intake Visit Reasons: VIDEO PO LSG 10/03/22 Allergies No Known Drug Allergies Allergy (Unknown, Verified 04/11/25 10:12) Unknown [facility] Medical History Back pain Bipolar disorder BMI 31.0-31.9,adult BMI 34.0-34.9,adult BMI 37.0-37.9, adult Depression GERD (gastroesophageal reflux disease) HIV positive Hyperlipidemia Hypertension Murmur, heart Obesity Prediabetes Sleep apnea Surgical History Hx of tonsillectomy H/O nasal septoplasty H/O rectal polypectomy History of laparoscopic appendectomy (~2020) Social History Are you a primary career resource technician to a significant other at home: No Do you presently have visiting nurse or other home services: No Alcohol intake: never Patient Tobacco Use Status: Never used Tobacco Behavioral Health Assessment Weight Management Therapy Therapy Notes Details Subjective: The patient reports recently returning from vacation. He describes difficulty managing eating behaviors when his favorite foods are available, such as during [place]obster Night on a cruise. He notes a pattern of skipping meals or restricting intake in anticipation of overeating these foods, which often leads to episodes of overconsumption. The patient expresses frustration with this cycle and a desire to develop healthier, more consistent eating habits. Objective: PT presents for a f/up visit via Telehealth. Discussed current functioning and specific challenges related to eating patterns. Interventions included: Psychoeducation on the cycle of restriction and overeating. Implementation of Rational Approach Theory to address relationship with food. Cognitive Behavioral Therapy (CBT) techniques, including cognitive restructuring to address evy-xq-mouudxy thinking and other cognitive distortions. Collaborative development of a more flexible and sustainable approach to eating, emphasizing consistency and balance. Provided constructive feedback and reinforced progress made. Assessment/Response: Mental status: Alert and oriented x3. Mood described as frustrated but hopeful. No evidence of psychosis, amisha, or severe depression. Insight and judgment intact. Risk reported/identified: None Assessment & Plan Assessment & Plan (1) Complex posttraumatic stress disorder: Code(s): F43.10 - Post-traumatic stress disorder, unspecified (2) S/P laparoscopic sleeve gastrectomy: Code(s): Z98.84 - Bariatric surgery status Plan The patient will continue monitoring eating patterns and using CBT and rational approach strategies to support healthier habits. Follow-up is scheduled for May 03, 2025, at 9:00 AM via video. Telehealth Telehealth Telehealth Platform: [employer] Location of provider rendering services: other (Home office. [place], [place]) Location of patient: address on file Patient Identification confirmed using: Name, : Yes Telehealth method: video Patient verbally consented to treatment: Yes Patient verbally consented to billing insurance company: Yes Patient informed of any privacy concerns related to visit: Yes Minutes spent on Phone/Video with Pt.: 55 Coding Level of Care Code Established Pt Tele Psytx >53 mins (38426) Patient Type Established Diagnoses Complex posttraumatic stress disorder F43.10 S/P laparoscopic sleeve gastrectomy Z98.84 Time Spent (min) 55
--- OUTSIDE RECORDS SUMMARY | 2025-03-31 09:43 | XMS_ITS | Data Portability ---
Author Organization [place] - [facility], Allergy Address [address] [address] Care Team Providers Care Machine Set Up Name Role Phone DONNELL BAKER Primary Care Provider Assessment Encounter Date Assessment Date Assessment LastModified by Organization Details LastModified Time 09/08/2024 09/08/2024 Bilateral tinnitus and light headedness. Hx of migraine and HIV disease history of noise exposure working on the [employer] in [place] and as a [employer] Audiogram from April was normal. Examination is [...] Address Organization Details Recorded Time Bilateral tinnitus [id number] Active 2023 TORRIE BROWN MD 100 [facility], [address], [place], [address], [facility] - [facility] 13:27:44 Lightheaded ness 340267673 Active 2023 TORRIE BROWN MD [address], [address], [facility] 4 13:27:48 Human immunodefic iency virus infection 48865902 Active 2023 TORRIE BROWN MD [address] [place] [address], [address], [facility] [place] 13:27:58 Migraine 54940007 Active 2023 TORRIE BROWN MD [address] [place] [address], [address], [facility] 13:28:07 Problem Notes None recorded. Medical Equipment [...] SNOMED-CT Code Diagnosis ICD10 Code Diagnosis Note [id number] TORRIE GTZ MD [facility] 100 [place] [address] 09/08/2024 12:30:20 09/08/2024 13:31:09 Bilateral tinnitus [id number] 102 H93.13 Today we discussed the pathophysi ology of tinnitus and the absence of consistent ly successful pharmacolo gic treatments for tinnitus. We discussed masking strategies to decrease awareness of the tinnitus, including using a white noise machine, music, [employer] tinnitus darell or television . We discussed how exposure to loud noise can worsen tinnitus so I recommende d hearing protection . We also discussed other ways to potentiall y help reduce awareness of tinnitus including avoidance of caffeine, salty meals and NSAIDs. Lightheadedness 79564054 8 R42 Human immunodeficiency virus infection 25852239 B20 Migraine 15711630 G43.90 9 Suspect underlying migraine headache. Suggest [...] Killian Member ID Guarantor Name 09/08/2024 1 [facility] (MEDICAID HMO) Isra Barr [id number] Isra Barr 09/08/2024 1 [facility] (MEDICAID HMO) [id number] Isra Irby [id number] Isra Barr Notes Date Note Type Note Provider Name and Address Organization Details Recorded Time 09/08/2024 text/html Bilateral tinnit us and light headedness. 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
== END 2025-03-31 10:25 | disposition home or self-care (01) ==
LOC: HO.HBST 09:17
PROVIDERS: PCP Nurse Practitioner Family; Visit Provider Counselor Mental Health
DX: F43.10 Post-traumatic stress disorder, unspecified (principal); Z98.84 Bariatric surgery status
CPT/HCPCS: 90837

== ENCOUNTER 2025-04-11 10:07 | Outpatient (AMB) | payer OTHER, SELFPAY ==
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
[2025-04-11 10:22] VITALS: BP 129/82; PULSE 80; TEMP 36.4; O2SAT 100; BMI 26.6
== END 2025-04-11 10:42 | disposition home or self-care (01) ==
LOC: HO.HBS 10:08
PROVIDERS: PCP Nurse Practitioner Family; Visit Provider Physician Assistant Surgical
DX: E66.3 Overweight (principal); Z98.84 Bariatric surgery status; Z90.3 Acquired absence of stomach [part of]; Z68.26 Body mass index [BMI] 26.0-26.9, adult
CPT/HCPCS: 99213

== ENCOUNTER → 2025-04-11 10:07 | Outpatient (BNVA) | payer OTHER, SELFPAY | PROVIDERS: PCP Nurse Practitioner Family; Visit Provider Physician Assistant Surgical | DX: Z98.84 Bariatric surgery status (principal) | CPT/HCPCS: 99212 ==

== ENCOUNTER 2025-05-03 11:13 | Outpatient (AMB) | payer OTHER, SELFPAY ==
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
== END 2025-05-03 12:03 | disposition home or self-care (01) ==
LOC: HO.HBST 11:13
PROVIDERS: PCP Nurse Practitioner Family; Visit Provider Counselor Mental Health
DX: F43.10 Post-traumatic stress disorder, unspecified (principal); Z98.84 Bariatric surgery status
CPT/HCPCS: 90834